=== PATIENT | male | born 1960 | race Caucasian/White ===

== ENCOUNTER 2019-05-12 10:09 | Emergency (ER) | payer BC ==
--- NOTE | 2019-05-12 10:41 | EDM.PDOC ---
<Donna Graff - Last Filed: 05/12/19 12:05> ED HPI GENERAL MEDICAL PROBLEM - General Chief Complaint: Back Pain or Injury Stated Complaint: BACK PAIN Time Seen by Provider: 05/12/19 10:29 Source of Information: Reports: Patient History Limitations: Reports: No Limitations - History of Present Illness INITIAL COMMENTS - FREE TEXT/NARRATIVE: 59-year-old male presents with complaints of her lateral lower back pain. Patient states the pain began Saturday after shoveling snow, but has been getting progressively worse since that time. He describes the pain as tightness radiating through the bilateral paraspinous muscles. Denies any pain directly over the spine. He has tried ice, Tylenol and aspirin at home with no relief. He states that the pain is worse with deep breathing and movement. Denies any bowel or bladder symptoms. Denies previous history of back pain or surgeries. Lower Back Pain Score (Numeric/FACES): 10 - Related Data Allergies Allergy/AdvReac Type Severity Reaction Status Date / Time No Known Allergies Allergy Verified 05/12/19 10:25 Home Meds: Home Meds Cyclobenzaprine [Flexeril] 10 mg PO BEDTIME PRN #5 tab 05/12/19 [Rx] Diclofenac Sodium [Voltaren] 50 mg PO TID #21 tab.ec 05/12/19 [Rx] predniSONE [Prednisone] 20 mg PO ASDIRECTED #11 tablet 05/12/19 [Rx] ED ROS GENERAL - Review of Systems Constitutional: Reports: No Symptoms. Denies: Weakness HEENT: Reports: No Symptoms Respiratory: Reports: No Symptoms Cardiovascular: Reports: No Symptoms Endocrine: Reports: No Symptoms GI/Abdominal: Reports: No Symptoms. Denies: Stool Incontinence : Reports: No Symptoms. Denies: Incontinence, Urinary Retention Musculoskeletal: Reports: Back Pain (bilateral lower) Skin: Reports: No Symptoms Neurological: Reports: No Symptoms. Denies: Numbness, Paresthesia, Tingling, Difficulty Walking, Weakness Psychiatric: Reports: No Symptoms Hematologic/Lymphatic: Reports: No Symptoms Immunologic: Reports: No Symptoms ED EXAM,LOWER BACK PAIN/INJURY - Physical Exam Exam: See Below Exam Limited By: No Limitations General Appearance: Alert, WD/WN, No Apparent Distress Respiratory/Chest: No Respiratory Distress, Lungs Clear, Normal Breath Sounds Cardiovascular: Normal Peripheral Pulses, Regular Rate, Rhythm, No Edema Back Exam: Normal Inspection, Muscle Spasm, Paraspinal Tenderness. No: Vertebral Tenderness Neurological: Alert, Normal Mood/Affect, Normal Dorsiflexion Psychiatric: Normal Affect, Normal Mood Skin Exam: Warm, Dry, Intact Course - Vital Signs Text/Narrative:: Patient is a 59-year-old male who presents with low back pain. He states the symptoms began shortly after shoveling snow on Saturday and has been getting progressively worse since that time. He has use ice, Tylenol and aspirin at home with no relief. He denies any bowel or bladder symptoms or numbness or tingling to lower extremities. He has no history of chronic back pain surgeries or injuries. On exam, the patient complains of tenderness to the bilateral paraspinous muscles, however, there is no tenderness directly over the spine itself. Pain is worsened with deep breathing or movement. We will treat the patient with Flexeril, prednisone and Toradol here in the ER. He will be sent home with a prescription for Voltaren 50 mg 3 times daily for 7 days, Flexeril 10 mg at bedtime, prednisone 20 mg twice a day for 4 days and then 20 mg daily for 4 days. Patient advised that he should see significant improvement within the next few days and if symptoms do not improve, he should follow up. Last Recorded V/S: Last Vital Signs Temp 36.8 C 05/12/19 10:25 Pulse 82 05/12/19 10:25 Resp 18 05/12/19 10:25 BP 147/81 H 05/12/19 10:25 Pulse Ox 99 05/12/19 10:25 - Orders/Labs/Meds Meds: Medications Discontinued Medications Generic Name Dose Route Start Last Admin Trade Name Mary PRN Reason Stop Dose Admin Cyclobenzaprine HCl 10 mg 05/12/19 10:50 05/12/19 11:51 Flexeril PO 05/12/19 10:51 10 mg ONETIME ONE Administration Ketorolac Tromethamine 60 mg 05/12/19 10:50 05/12/19 11:51 Toradol IM 05/12/19 10:51 60 mg ONETIME ONE Administration Prednisone 20 mg 05/12/19 10:49 05/12/19 11:50 Prednisone PO 05/12/19 10:50 20 mg ONETIME ONE Administration Departure - Departure Time of Disposition: 12:05 Disposition: Home, Self-Care 01 Condition: Fair Clinical Impression: Low back strain - Discharge Information *PRESCRIPTION DRUG MONITORING PROGRAM REVIEWED*: No *COPY OF PRESCRIPTION DRUG MONITORING REPORT IN PATIENT EDENILSON: No Prescriptions: Cyclobenzaprine [Flexeril] 10 mg PO BEDTIME PRN #5 tab PRN Reason: Muscle Spasm Diclofenac Sodium [Voltaren] 50 mg PO TID #21 tab.ec predniSONE [Prednisone] 20 mg PO ASDIRECTED #11 tablet Instructions: Acute Back Pain, Adult, Lumbosacral Strain Referrals: Shauna Marte, SENIOR COST ESTIMATOR [Primary Care Provider] - Forms: ED Department Discharge Additional Instructions: You were seen in the ER today with complaints of lower back pain that started after shoveling snow on Saturday. On exam, it appears ER suffering from spasms of the paraspinous muscles surrounding her spine. You were given a dose of Flexeril, Toradol, and prednisone in the ER to reduce the inflammation and relax these muscles. A prescription for Voltaren 50 mg by mouth 3 times daily for 7 days, Flexeril 10 mg by mouth at bedtime, and prednisone 20 mg by mouth twice daily for 4 days followed by 20 mg once daily for 4 days, was sent to [facility] pharmacy. We recommend that you take the Voltaren with food to prevent stomach upset. You may continue to use ice or heat to her lower back as needed. You should begin to see significant improvement in your symptoms over the next few days. If you do not see improvement as expected we recommend that you follow-up with your primary care provider or return to the ER if needed. <Naga Garcia - Last Filed: 05/12/19 12:20> ED ROS GENERAL - Review of Systems Review Of Systems: See Below Course - Radiology Interpretation Free Text/Narrative:: Patient was seen and examined by me as well as the nurse practitioner student Donna Graff. Patient has a mechanical low back strain time early involving the facet joints in his left lower back lumbar 3-5. Is no radiculopathy and SI joints are normal. Treatment will be conservative with IM injection of Toradol for acute pain relief. He will be placed on a short course of prednisone 20 mg twice a day for 4 days then once in the morning for another 4 days. Voltaren 50 mg 3 times daily for the next 7 days. Also placed on Flexeril 10 mg once daily at bedtime. I agree with patient's examination and treatment plan is provided by the nurse practitioner.
[2019-05-12] MEDS ORDERED: predniSONE 20 MG Tab PO ONE (10:49)
[2019-05-12] MEDS ORDERED: Cyclobenzaprine 10 MG Tab PO ONE (10:50)
[2019-05-12] MEDS ORDERED: Ketorolac 60 MG/2 ML SDV IM ONE (10:50)
== END 2019-05-12 12:16 | disposition home or self-care (01) ==
LOC: JD.ED 10:09
DX: S39.012A Strain of muscle, fascia and tendon of lower back, initial encounter (principal); Y93.H1 Activity, digging, shoveling and raking
CPT/HCPCS: 96372; 99283; A9270; J1885

== ENCOUNTER 2019-05-28 09:30 | Emergency (ER) | payer BC ==
--- NOTE | 2019-05-28 10:46 | EDM.PDOC ---
ED HPI GENERAL MEDICAL PROBLEM - General Chief Complaint: Back Pain or Injury Stated Complaint: BACK PAIN Time Seen by Provider: 05/28/19 09:49 Source of Information: Reports: Patient, Family (), Old Records (ED visit , MRI 05/25/2019) History Limitations: Reports: No Limitations - History of Present Illness INITIAL COMMENTS - FREE TEXT/NARRATIVE: Mr. Duggan is a very pleasant 59-year-old man with a past medical history significant for untreated CLL, untreated ulcerative colitis, and a seizure disorder for which she takes lamotrigine, who was seen in this ED on Saturday, , and 05/17/2019, both times for lower back pain that developed on either 05/10/2019 or 05/12/2019, after he shoveled snow, played with his grandchildren, and moved items. On his initial ED visit, he was prescribed a prednisone taper, along with diclofenac and cyclobenzaprine. The patient then followed up with his PCP on 05/13/2019 where his cyclobenzaprine was increased from once a day to 3 times a day. His pain got worse, therefore he returned to the ED on 05/17/2019, at which time he reported that his pain radiated "everywhere", including down both lower extremities as far as the knee. He reported paresthesia to his bilateral upper lateral thighs that began on 05/16/2019. He denied bowel or bladder incontinence, and he denied having recent fever. Workup during his second ED visit included a CBC, CMP, urinalysis, and a CT scan of the lumbar spine with IV contrast. His WBC count was elevated at 44.751% bandemia, but it was noted that the patient has a history of untreated CLL, and he was also on prednisone. The remainder of his CBC, along with his CMP and urinalysis, were unremarkable. The CT scan of his L-spine with contrast found a small central bulge at L5-S1, but with no stenosis or visible nerve compression. Also noted, however, were increased numbers of lymph nodes within the retroperitoneum, iliac, and presacral regions. Further evaluation was recommended. He was discharged home with a prescription for Greenfield 5/325, and his cyclobenzaprine was switched to Greenfield. The patient tells me that he did not actually see his PCP, but he called him, Maura of his L-spine was ordered, which was performed on 05/25/2019. The report reads: 1. Mild diffuse degenerative change as noted above. No central canal stenosis or neural foraminal stenosis is seen. No focal disc herniation is seen. The patient now returns to the ED stating that his pain has continued. It waxes and wanes, and when present, can be excruciating, despite his continuation of Percocet, Greenfield, and diclofenac. At present, here in the ED, his pain is minimal. No recent fever, chills, cough, dyspnea, nausea, vomiting, constipation, diarrhea, abdominal pain, urinary symptoms, recent weight gain or weight loss, recent bloody bowel movements or black bowel movements, recent joint aches, headaches, or rashes. The patient's PCP is Dr. Aron Sweet. His Neurologist is Dr. Gildardo Suresh. His Oncologist is Dr. Fabrizio Yu. Bilateral Lower Back Pain Score (Numeric/FACES): 8 - Related Data Allergies Allergy/AdvReac Type Severity Reaction Status Date / Time No Known Allergies Allergy Verified 05/28/19 09:51 Home Meds: Home Meds Orphenadrine [Norflex] 1 tab PO Q12H PRN #20 tab 05/17/19 [Rx] Diclofenac Sodium [Voltaren] 75 mg PO BID 05/28/19 [History] oxyCODONE HCl/Acetaminophen [Percocet 5-325 mg Tablet] 1 each PO ASDIRECTED PRN 05/28/19 [History] Past Medical History HEENT History: Reports: Impaired Vision Other HEENT History: glasses Respiratory History: Reports: Sleep Apnea (nightly AutoPAP) Gastrointestinal History: Reports: Diverticulosis (w/ diverticulitis, s/p sigmoid hemicolectomy), Inflammatory Bowel Disease (ulcerative colitis - untreated) Neurological History: Reports: Seizure Oncologic (Cancer) History: Reports: Leukemia (CLL - observation only) - Past Surgical History HEENT Surgical History: Reports: Oral Surgery (wisdom teeth extraction), Tonsillectomy GI Surgical History: Reports: Colon (sigmoid hemicolectomy 2003) Musculoskeletal Surgical History: Reports: Shoulder Surgery (left, arthroscopic , 2011) Social & Family History - Tobacco Use Smoking Status *Q: Never Smoker - Alcohol Use Alcohol Use History: Yes Alcohol Use Frequency: Socially - Recreational Drug Use Recreational Drug Use: No - Living Situation & Occupation Living situation: Reports: , with Spouse, with Family (1 son) Occupation: Employed ([employer]) ED ROS GENERAL - Review of Systems Review Of Systems: Comprehensive ROS is negative, except as noted in HPI. ED EXAM,LOWER BACK PAIN/INJURY - Physical Exam Exam: See Below Exam Limited By: No Limitations General Appearance: Alert, WD/WN, No Apparent Distress Eye Exam: Bilateral Eye: EOMI, Normal Inspection Ears: Normal External Exam, Hearing Grossly Normal Nose: Normal Inspection Throat/Mouth: Normal Inspection, Normal Lips, Normal Voice, No Airway Compromise Head: Atraumatic, Normocephalic Neck: Normal Inspection, Full Range of Motion Respiratory/Chest: No Respiratory Distress, Lungs Clear, Normal Breath Sounds, No Accessory Muscle Use Cardiovascular: Normal Peripheral Pulses, Regular Rate, Rhythm, No Edema, No Gallop, No JVD, No Murmur, No Rub GI/Abdominal: Normal Bowel Sounds, Soft, Non-Tender, No Organomegaly, No Distention, No Abnormal Bruit, No Mass (Male) Exam: Deferred Rectal (Males) Exam: Deferred Back Exam: Normal Inspection. No: CVA Tenderness (L), CVA Tenderness (R), Muscle Spasm, Paraspinal Tenderness, Vertebral Tenderness Extremities: Normal Inspection, Normal Range of Motion, No Pedal Edema, Normal Capillary Refill Neurological: Alert, Normal Dorsiflexion, Normal Plantar Flexion, No Motor/ Sensory Deficits, Oriented x 3 Psychiatric: Normal Affect Skin Exam: Warm, Dry, Intact, Normal Color, No Rash Course - Vital Signs Last Recorded V/S: Last Vital Signs Temp 37.4 C 05/28/19 09:56 Pulse 62 05/28/19 09:56 Resp 16 05/28/19 09:56 BP 97/47 L 05/28/19 09:56 Pulse Ox 95 05/28/19 09:56 - Re-Assessments/Exams Free Text/Narrative Re-Assessment/Exam: 05/28/19 10:41 As per the HPI, the patient's lower back pain has continued to wax and wane despite treatment with Greenfield, Norflex, and diclofenac. Here in the ED, the patient is essentially pain-free, and his physical exam is benign, however, he states that about an hour ago, he was in excruciating pain. The etiology of his pain is unclear; both a CT scan of his lumbar spine with IV contrast and a MRI of his lumbar spine are unremarkable. There does not appear to be an anatomic abnormality to explain his pain, however, that does not rule out a functional abnormality. I offered to place the patient into observation for pain control, versus talk to his Neurologist in [place] to see if they would recommend admission to the hospital for further evaluation, however, the patient declined both options - he does not want to be hospitalized on . Because he is pain-free at this time, he would prefer to go home, however, if his pain returns and is unable to be controlled with the Percocet, Norflex, and diclofenac that he has at home, the patient agreed to return to the ED for reevaluation and reconsideration of hospitalization. Departure - Departure Time of Disposition: 10:44 Disposition: Home, Self-Care 01 Condition: Good Clinical Impression: Low back pain - Discharge Information *PRESCRIPTION DRUG MONITORING PROGRAM REVIEWED*: Not Applicable *COPY OF PRESCRIPTION DRUG MONITORING REPORT IN PATIENT EDENILSON: Not Applicable Referrals: Aron Sweet MD [Primary Care Provider] - Gildardo Suresh MD [Ordering Only Provider] - Fabrizio Yu MD [Ordering Only Provider] - Forms: ED Department Discharge Additional Instructions: You were seen in the emergency room for continued exacerbations of lower back pain. As discussed, the diagnostic ability of the emergency department has been exhausted. Placement into observation for pain control versus potential transferred to [place] were offered, but declined. Continue to take your previously prescribed Percocet, diclofenac, and Norflex, as prescribed. If your pain recurs and is unbearable, please do not hesitate to return to the ER for reevaluation with likely placement into observation versus transfer to [place].
== END 2019-05-28 10:57 | disposition home or self-care (01) ==
LOC: JD.ED 09:30
DX: M54.5 Low back pain (principal); G40.909 Epilepsy, unspecified, not intractable, without status epilepticus; G47.30 Sleep apnea, unspecified; Z79.899 Other long term (current) drug therapy
CPT/HCPCS: 99282

== ENCOUNTER 2021-05-22 17:52 | Emergency (ER) | payer BC ==
[2021-05-22] MEDS ORDERED: Sodium Chloride 0.9% 10 ML Syringe FLUSH PRN (18:27)
--- NOTE | 2021-05-22 18:58 | EDM.PDOC ---
<Aurelio Salazar - Last Filed: 05/22/21 21:10> ED HPI GENERAL MEDICAL PROBLEM - General Chief Complaint: Cardiovascular Problem Stated Complaint: LOW HEMOGLOBIN Time Seen by Provider: 05/22/21 18:07 - Related Data Allergies Allergy/AdvReac Type Severity Reaction Status Date / Time No Known Allergies Allergy Verified 05/23/21 14:58 Home Meds: Home Meds Orphenadrine [Norflex] 1 tab PO Q12H PRN #20 tab 05/17/19 [Rx] Diclofenac Sodium [Voltaren] 75 mg PO BID 05/28/19 [History] oxyCODONE HCl/Acetaminophen [Percocet 5-325 mg Tablet] 1 each PO ASDIRECTED PRN 05/28/19 [History] predniSONE 20 mg PO WITHBREAKFAST #50 tab 05/24/21 [Rx] Course - Re-Assessments/Exams Free Text/Narrative Re-Assessment/Exam: 05/22/21 21:10 Assumed care routine change of shift. Patient evaluated at bedside. When I walked in, he was eating a [employer] sandwich. Laboratory studies demonstrate hemoglobin of 4.2. Bilirubin of 7. Gallbladder ultrasound demonstrates mild thickening but no signs of acute cholecystitis. No gallstones seen. At this point, blood transfusion has been ordered but not been initiated. We will initiate this shortly. Conversation with patient about admission occurred. He does prefer to go to [facility] as is where his oncology care is. Departure - Departure Disposition: Home, Self-Care 01 Clinical Impression: Anemia, CLL (chronic lymphocytic leukemia) Referrals: Aron Sweet MD [Primary Care Provider] - Forms: ED Department Discharge Additional Instructions: Labs reviewed with Dr Yu office and recommendations from his office are that you will be discharged home. Continue Prednisone 100 mg orally every day until further directions given to you by Dr Tinsley office. You are to go to [facility] on 05-25-21 for repeat lab work. They are open 8am to 2 pm on . Lab work also to be repeated on Saturday05-26-[address] [facility]open normal business hours) Further direction and care to come from Dr Tinsley office. Should you worsen in any way, please do not hesitate to return to the Emergency Department Dr. Yu's will inform you on how long to take the prednisone for. I did send an electronic prescription to the clinic pharmacy so you have 10 days of prednisone if you need it that long. Take 5 tablets every morning until advised to do otherwise. Do not take Voltaren ibuprofen or Naprosyn like medications with the prednisone. <Dennis García A - Last Filed: 05/23/21 18:23> ED HPI GENERAL MEDICAL PROBLEM - General Source of Information: Reports: Patient History Limitations: Reports: No Limitations - History of Present Illness INITIAL COMMENTS - FREE TEXT/NARRATIVE: The patient presents from Dr Sweet's office for anemia and jaundice. The patient was diagnosed with COVID 19 on the . He did okay until recently. He has swelling in his hands and legs. He is short of breath with walking just a few feet. He had a fever at the clinic of 102. He has a cough. He has no headache. He has no chest pain. He is short of breath. He has no abdominal pain. He has no nausea or vomiting. He has a history of CLL. His WBC was 37.6. His Hgb was low at 4.3. He has been jaundiced for a few days. He has never had any problems with his liver or gallbladder. He has not been taking acetaminophen in excess and he is not a heavy drinker. Headache Pain Score (Numeric/FACES): 7 Past Medical History HEENT History: Reports: Impaired Vision Other HEENT History: glasses Respiratory History: Reports: Sleep Apnea Other Respiratory History: COVID Gastrointestinal History: Reports: Diverticulosis, Inflammatory Bowel Disease Other Gastrointestinal History: emergent bowel resection in 2003 due to diverticulitis, ulcerative colitis Genitourinary History: Reports: Other (See Below) Other Genitourinary History: frequent bathroom trips. Musculoskeletal History: Reports: Fracture Neurological History: Reports: Concussion, Seizure Psychiatric History: Reports: Anxiety, Depression Hematologic History: Reports: Blood Transfusion(s), Other (See Below) Other Hematologic History: CLL Oncologic (Cancer) History: Reports: Basal Cell Carcinoma, Leukemia Dermatologic History: Reports: Other (See Below) Other Dermatologic History: plastic duplicator, basal cell CA - Infectious Disease History Infectious Disease History: Reports: Chicken Pox, Mumps, Novel Coronavirus - Past Surgical History HEENT Surgical History: Reports: Oral Surgery, Tonsillectomy GI Surgical History: Reports: Colon, Colonoscopy Musculoskeletal Surgical History: Reports: Shoulder Surgery Social & Family History - Tobacco Use Tobacco Use Status *Q: Never Tobacco User Second Hand Smoke Exposure: No - Caffeine Use Caffeine Use: Reports: Coffee - Recreational Drug Use Recreational Drug Use: No - Living Situation & Occupation Living situation: Reports: , with Spouse, with Family (1 son) Occupation: Employed ([employer]) ED ROS GENERAL - Review of Systems Review Of Systems: See Below Constitutional: Reports: Fever, Chills, Weakness, Fatigue HEENT: Reports: No Symptoms Respiratory: Reports: Shortness of Breath Cardiovascular: Reports: Edema. Denies: Chest Pain Endocrine: Reports: No Symptoms GI/Abdominal: Reports: No Symptoms : Reports: No Symptoms Musculoskeletal: Reports: Other (Swelling of his hands and feet) Skin: Reports: Jaundice Neurological: Reports: No Symptoms ED EXAM, GENERAL - Physical Exam Exam: See Below Exam Limited By: No Limitations General Appearance: Alert, No Apparent Distress Eye Exam: Bilateral Eye: Other (Scleral ictirus) Ears: Normal External Exam Nose: Normal Inspection Head: Atraumatic, Normocephalic Neck: Normal Inspection, Supple Respiratory/Chest: No Respiratory Distress, Lungs Clear, Normal Breath Sounds Cardiovascular: Regular Rate, Rhythm, Other (2+ edema to his legs and 1+ to his arms) GI/Abdominal: Soft, Non-Tender, No Organomegaly Back Exam: Normal Inspection Neurological: Alert, Oriented, No Motor/Sensory Deficits #1 Interpretation EKG Date: 05/22/21 Time: 19:11 Rhythm: NSR Rate (Beats/Min): 77 [place]: Normal P-Wave: Present QRS: Normal ST-T: Normal QT: Normal Course - Re-Assessments/Exams Free Text/Narrative Re-Assessment/Exam: 05/22/21 19:03 I ordered an IV saline lock, EKG, CXR, labs, 3 units of blood and an US of his RUQ. 05/22/21 19:32 His EKG shows a NSR with no acute changes. His CXR shows bone findings which are likely incidental and chronic. Nothing acute is seen on frontal chest x- ray. His WBC was elevated at 32.44. His Hgb is 4.2. His platelets are normal at 321. His PT and PTT look good. His D-dimer was elevated at 1.3. It is change of shift. Dr Salazar to take over. Free Text/Narrative Re-Assessment/Exam: 05/23/21 10:[address] Salazar. There were no beds at [facility] last night. He is on a waiting list for this morning. He is getting a 4th unit of blood. I will recheck his Hgb then. 05/23/21 18:23 His Hgb did not move much he is at 6.5. I have ordered another unit of blood. There is still ne beds. I called around the [facility]. He is on a list at [facility] and at the [facility] transfer center. I did talk with his Heme/onc doctor Dr Yu and he recommended prednisone 100mg daily. He feels his blood is being hemolyzed. I ordered that and I will give him a dose of lasix after the next infusion and recheck his CBC and CMP. 05/23/21 18:28 It is change of shift soon. Dr Salazar to take over. Sepsis Event Note (ED) - Evaluation Sepsis Screening Result: No Definite Risk <Quique Carvalho - Last Filed: 05/24/21 11:27> Course - Vital Signs Last Recorded V/S: Last Vital Signs Temp 37.1 C 05/23/21 15:57 Pulse 76 05/24/21 10:15 Resp 24 H 05/24/21 10:15 BP 127/57 L 05/24/21 10:15 Pulse Ox 95 05/24/21 10:15 - Orders/Labs/Meds Orders: Active Orders 24 hr Category Date Time Status HAPTOGLOBIN [REF] Stat Lab 05/23/21 12:15 Received SMEARS TO PATH (SLIDES ONLY) [REF] Stat Lab 05/23/21 12:15 Received predniSONE Med 05/24/21 09:00 Active 100 mg PO DAILY Transfuse PRBC [Transfuse Red Blood Cells] [COMM] Stat Oth 05/23/21 14:11 Ordered Medication Orders Sodium Chloride (Normal Saline) 1,000 mls @ 25 mls/hr IV ONETIME ONE Stop: 05/24/21 13:06 Last Admin: 05/22/21 21:57 Dose: 25 mls/hr Documented by: VENICE Sodium Chloride (Normal Saline) 250 mls @ 100 mls/hr IV ASDIRECTED [facility] Last Admin: 05/23/21 15:45 Dose: 100 mls/hr Documented by: KEMI Prednisone (Prednisone 20 Mg Tab) 100 mg PO DAILY [facility] Last Admin: 05/24/21 08:56 Dose: 100 mg Documented by: WARREN Sodium Chloride (Sodium Chloride 0.9% 10 Ml Syringe) 10 ml FLUSH ASDIRECTED PRN PRN Reason: Keep Vein Open Last Admin: 05/22/21 18:54 Dose: 10 ml Documented by: FRANCISCO Labs: Laboratory Tests 05/22/21 05/22/21 05/22/21 Range/Units 00:14 18:50 18:50 WBC (4.23-9.07) K/mm3 RBC (4.63-6.08) M/mm3 Hgb (13.7-17.5) gm/dl Hct (40.1-51.0) % MCV (79.0-92.2) fl MCH (25.7-32.2) pg MCHC (32.2-35.5) g/dl RDW Std Deviation (35.1-43.9) fL Plt Count (163-337) K/mm3 MPV (9.4-12.3) fl Neut % (Auto) Lymph % (Auto) Harney % (Auto) Eos % (Auto) Baso % (Auto) Neut # (Auto) Lymph # (Auto) Harney # (Auto) Eos # (Auto) Baso # (Auto) Neutrophils % (Manual) (40-60) % Band Neutrophils % (0-10) % Lymphocytes % (Manual) (20-40) % Atypical Lymphs % % Monocytes % (Manual) (2-10) % Eosinophils % (Manual) (0.8-7.0) % Basophils % (Manual) (0.2-1.2) Blast Cells % Manual Slide Review Toxic Granulation Platelet Estimate Plt Morphology Comment Polychromasia Hypochromasia Poikilocytosis Anisocytosis Macrocytosis Spherocytes Target Cells Tear Drop Cells Ovalocytes Stomatocytes RBC Morph Comment Percent Retic (0.51-1.81) % PT 10.3 (9.7-12.0) SECONDS INR 0.93 APTT 22.8 (21.7-31.4) SECONDS D-Dimer, Quantitative 1.30 H (0.19-0.50) mg/L Sodium 135 L (136-145) mEq/L Potassium 4.3 (3.5-5.1) mEq/L Chloride 101 (98-107) mEq/L Carbon Dioxide 26 (21-32) mEq/L Anion Gap 12.3 (5-15) BUN 22 H (7-18) mg/dL Creatinine 1.2 (0.7-1.3) mg/dL Est Cr Clr Drug Dosing 67.98 mL/min Estimated GFR (MDRD) > 60 (>60) mL/min BUN/Creatinine Ratio 18.3 H (14-18) Glucose 116 H (70-99) mg/dL Lactic Acid (0.4-2.0) mmol/L Calcium 8.8 (8.5-10.1) mg/dL Total Bilirubin 7.0 H (0.2-1.0) mg/dL Direct Bilirubin (0.0-0.2) mg/dl Indirect Bilirubin AST 97 H (15-37) U/L ALT 41 (16-63) U/L Alkaline Phosphatase 142 H (46-116) U/L Lactate Dehydrogenase (85-227) U/L Troponin I < 0.017 (0.00-0.056) ng/mL C-Reactive Protein 3.4 H* (<1.0) mg/dL NT-Pro-B Natriuret Pep (0-125) pg/mL Total Protein 6.2 L (6.4-8.2) g/dl Albumin 3.5 (3.4-5.0) g/dl Globulin 2.7 gm/dL Albumin/Globulin Ratio 1.3 (1-2) Lipase 132 (73-393) U/L SARS-CoV-2 RNA (NINO) Positive H (NEGATIVE) Blood Type Gel Antibody Screen Crossmatch 05/22/21 05/22/21 05/22/21 Range/Units 18:50 18:50 18:50 WBC (4.23-9.07) K/mm3 RBC (4.63-6.08) M/mm3 Hgb (13.7-17.5) gm/dl Hct (40.1-51.0) % MCV (79.0-92.2) fl MCH (25.7-32.2) pg MCHC (32.2-35.5) g/dl RDW Std Deviation (35.1-43.9) fL Plt Count (163-337) K/mm3 MPV (9.4-12.3) fl Neut % (Auto) Lymph % (Auto) [place] % (Auto) Eos % (Auto) Baso % (Auto) Neut # (Auto) Lymph # (Auto) [place]ney # (Auto) Eos # (Auto) Baso # (Auto) Neutrophils % (Manual) (40-60) % Band Neutrophils % (0-10) % Lymphocytes % (Manual) (20-40) % Atypical Lymphs % % Monocytes % (Manual) (2-10) % Eosinophils % (Manual) (0.8-7.0) % Basophils % (Manual) (0.2-1.2) Blast Cells % Manual Slide Review Toxic Granulation Platelet Estimate Plt Morphology Comment Polychromasia Hypochromasia Poikilocytosis Anisocytosis Macrocytosis Spherocytes Target Cells Tear Drop Cells Ovalocytes Stomatocytes RBC Morph Comment Percent Retic (0.51-1.81) % PT (9.7-12.0) SECONDS INR APTT (21.7-31.4) SECONDS D-Dimer, Quantitative (0.19-0.50) mg/L Sodium (136-145) mEq/L Potassium (3.5-5.1) mEq/L Chloride (98-107) mEq/L Carbon Dioxide (21-32) mEq/L Anion Gap (5-15) BUN (7-18) mg/dL Creatinine (0.7-1.3) mg/dL Est Cr Clr Drug Dosing mL/min Estimated GFR (MDRD) (>60) mL/min BUN/Creatinine Ratio (14-18) Glucose (70-99) mg/dL Lactic Acid 0.8 (0.4-2.0) mmol/L Calcium (8.5-10.1) mg/dL Total Bilirubin (0.2-1.0) mg/dL Direct Bilirubin (0.0-0.2) mg/dl Indirect Bilirubin AST (15-37) U/L ALT (16-63) U/L Alkaline Phosphatase (46-116) U/L Lactate Dehydrogenase (85-227) U/L Troponin I (0.00-0.056) ng/mL C-Reactive Protein (<1.0) mg/dL NT-Pro-B Natriuret Pep 783 H (0-125) pg/mL Total Protein (6.4-8.2) g/dl Albumin (3.4-5.0) g/dl Globulin gm/dL Albumin/Globulin Ratio (1-2) Lipase (73-393) U/L SARS-CoV-2 RNA (NINO) (NEGATIVE) Blood Type A POSITIVE Gel Antibody Screen Negative Crossmatch See Detail 05/22/21 05/22/21 05/22/21 Range/Units 18:50 18:54 20:10 WBC 32.44 H (4.23-9.07) K/mm3 RBC 1.20 L (4.63-6.08) M/mm3 Hgb 4.2 L* D (13.7-17.5) gm/dl Hct 12.9 L (40.1-51.0) % MCV 107.5 H D (79.0-92.2) fl MCH 35.0 H (25.7-32.2) pg MCHC 32.6 (32.2-35.5) g/dl RDW Std Deviation 56.3 H (35.1-43.9) fL Plt Count 321 (163-337) K/mm3 MPV 9.2 L (9.4-12.3) fl Neut % (Auto) Lymph % (Auto) [place] % (Auto) Eos % (Auto) Baso % (Auto) Neut # (Auto) Lymph # (Auto) [place] # (Auto) Eos # (Auto) Baso # (Auto) Neutrophils % (Manual) 27 L (40-60) % Band Neutrophils % 1 (0-10) % Lymphocytes % (Manual) 44 H (20-40) % Atypical Lymphs % 6 % Monocytes % (Manual) 20 H (2-10) % Eosinophils % (Manual) 0 L (0.8-7.0) % Basophils % (Manual) 0 L (0.2-1.2) Blast Cells % 2 Manual Slide Review Toxic Granulation Moderate Platelet Estimate Adequate Plt Morphology Comment Polychromasia 1+ slight Hypochromasia Poikilocytosis 1+ slight Anisocytosis 2+ moderate Macrocytosis 2+ moderate Spherocytes Few Target Cells Tear Drop Cells Ovalocytes 1+ slight Stomatocytes RBC Morph Comment Not Reportable Percent Retic (0.51-1.81) % PT (9.7-12.0) SECONDS INR APTT (21.7-31.4) SECONDS D-Dimer, Quantitative (0.19-0.50) mg/L Sodium (136-145) mEq/L Potassium (3.5-5.1) mEq/L Chloride (98-107) mEq/L Carbon Dioxide (21-32) mEq/L Anion Gap (5-15) BUN (7-18) mg/dL Creatinine (0.7-1.3) mg/dL Est Cr Clr Drug Dosing mL/min Estimated GFR (MDRD) (>60) mL/min BUN/Creatinine Ratio (14-18) Glucose (70-99) mg/dL Lactic Acid (0.4-2.0) mmol/L Calcium (8.5-10.1) mg/dL Total Bilirubin 6.4 H (0.2-1.0) mg/dL Direct Bilirubin 0.80 H (0.0-0.2) mg/dl Indirect Bilirubin 5.60 AST (15-37) U/L ALT (16-63) U/L Alkaline Phosphatase (46-116) U/L Lactate Dehydrogenase (85-227) U/L Troponin I (0.00-0.056) ng/mL C-Reactive Protein (<1.0) mg/dL NT-Pro-B Natriuret Pep (0-125) pg/mL Total Protein (6.4-8.2) g/dl Albumin (3.4-5.0) g/dl Globulin gm/dL Albumin/Globulin Ratio (1-2) Lipase (73-393) U/L SARS-CoV-2 RNA (NINO) (NEGATIVE) Blood Type Gel Antibody Screen Crossmatch See Detail 05/22/21 05/22/21 05/23/21 Range/Units 21:04 22:54 04:25 WBC (4.23-9.07) K/mm3 RBC (4.63-6.08) M/mm3 Hgb 6.6 L* D (13.7-17.5) gm/dl Hct 19.6 L (40.1-51.0) % MCV (79.0-92.2) fl MCH (25.7-32.2) pg MCHC (32.2-35.5) g/dl RDW Std Deviation (35.1-43.9) fL Plt Count (163-337) K/mm3 MPV (9.4-12.3) fl Neut % (Auto) Lymph % (Auto) [place] % (Auto) Eos % (Auto) Baso % (Auto) Neut # (Auto) Lymph # (Auto) [place] # (Auto) Eos # (Auto) Baso # (Auto) Neutrophils % (Manual) (40-60) % Band Neutrophils % (0-10) % Lymphocytes % (Manual) (20-40) % Atypical Lymphs % % Monocytes % (Manual) (2-10) % Eosinophils % (Manual) (0.8-7.0) % Basophils % (Manual) (0.2-1.2) Blast Cells % Manual Slide Review Toxic Granulation Platelet Estimate Plt Morphology Comment Polychromasia Hypochromasia Poikilocytosis Anisocytosis Macrocytosis Spherocytes Target Cells Tear Drop Cells Ovalocytes Stomatocytes RBC Morph Comment Percent Retic 5.87 H (0.51-1.81) % PT (9.7-12.0) SECONDS INR APTT (21.7-31.4) SECONDS D-Dimer, Quantitative (0.19-0.50) mg/L Sodium (136-145) mEq/L Potassium (3.5-5.1) mEq/L Chloride (98-107) mEq/L Carbon Dioxide (21-32) mEq/L Anion Gap (5-15) BUN (7-18) mg/dL Creatinine (0.7-1.3) mg/dL Est Cr Clr Drug Dosing mL/min Estimated GFR (MDRD) (>60) mL/min BUN/Creatinine Ratio (14-18) Glucose (70-99) mg/dL Lactic Acid (0.4-2.0) mmol/L Calcium (8.5-10.1) mg/dL Total Bilirubin (0.2-1.0) mg/dL Direct Bilirubin (0.0-0.2) mg/dl Indirect Bilirubin AST (15-37) U/L ALT (16-63) U/L Alkaline Phosphatase (46-116) U/L Lactate Dehydrogenase 1486 H (85-227) U/L Troponin I (0.00-0.056) ng/mL C-Reactive Protein (<1.0) mg/dL NT-Pro-B Natriuret Pep (0-125) pg/mL Total Protein (6.4-8.2) g/dl Albumin (3.4-5.0) g/dl Globulin gm/dL Albumin/Globulin Ratio (1-2) Lipase (73-393) U/L SARS-CoV-2 RNA (NINO) (NEGATIVE) Blood Type Gel Antibody Screen Crossmatch 05/23/21 05/23/21 05/23/21 Range/Units 12:15 21:12 21:12 WBC 37.07 H 44.30 H (4.23-9.07) K/mm3 RBC 1.92 L 2.33 L (4.63-6.08) M/mm3 Hgb 6.5 L* 7.7 L (13.7-17.5) gm/dl Hct 18.9 L 22.4 L (40.1-51.0) % MCV 98.4 H D 96.1 H (79.0-92.2) fl MCH 33.9 H 33.0 H (25.7-32.2) pg MCHC 34.4 34.4 (32.2-35.5) g/dl RDW Std Deviation 54.0 H 55.0 H (35.1-43.9) fL Plt Count 272 279 (163-337) K/mm3 MPV 9.1 L 8.9 L (9.4-12.3) fl Neut % (Auto) Cancelled Lymph % (Auto) Cancelled [place] % (Auto) Cancelled Eos % (Auto) Cancelled Baso % (Auto) Cancelled Neut # (Auto) Cancelled Lymph # (Auto) Cancelled [place] # (Auto) Cancelled Eos # (Auto) Cancelled Baso # (Auto) Cancelled Neutrophils % (Manual) 23 L 32 L (40-60) % Band Neutrophils % 0 0 (0-10) % Lymphocytes % (Manual) 73 H 56 H (20-40) % Atypical Lymphs % 0 6 % Monocytes % (Manual) 3 6 (2-10) % Eosinophils % (Manual) 0 L 0 L (0.8-7.0) % Basophils % (Manual) 1 0 L (0.2-1.2) Blast Cells % Manual Slide Review Cancelled Toxic Granulation Few Platelet Estimate Adequate Adequate Plt Morphology Comment Normal Polychromasia Hypochromasia 4+ Poikilocytosis Anisocytosis 1+ slight Macrocytosis 1+ slight Spherocytes Target Cells 2+ moderate Tear Drop Cells 4+ Ovalocytes Stomatocytes 2+ moderate RBC Morph Comment Abnormal Not Reportable Percent Retic (0.51-1.81) % PT (9.7-12.0) SECONDS INR APTT (21.7-31.4) SECONDS D-Dimer, Quantitative (0.19-0.50) mg/L Sodium 134 L (136-145) mEq/L Potassium 4.6 (3.5-5.1) mEq/L Chloride 101 (98-107) mEq/L Carbon Dioxide 25 (21-32) mEq/L Anion Gap 12.6 (5-15) BUN 25 H (7-18) mg/dL Creatinine 1.0 (0.7-1.3) mg/dL Est Cr Clr Drug Dosing 81.58 mL/min Estimated GFR (MDRD) > 60 (>60) mL/min BUN/Creatinine Ratio 25.0 H (14-18) Glucose 147 H (70-99) mg/dL Lactic Acid (0.4-2.0) mmol/L Calcium 8.4 L (8.5-10.1) mg/dL Total Bilirubin 10.8 H (0.2-1.0) mg/dL Direct Bilirubin (0.0-0.2) mg/dl Indirect Bilirubin AST 82 H (15-37) U/L ALT 39 (16-63) U/L Alkaline Phosphatase 136 H (46-116) U/L Lactate Dehydrogenase (85-227) U/L Troponin I (0.00-0.056) ng/mL C-Reactive Protein (<1.0) mg/dL NT-Pro-B Natriuret Pep (0-125) pg/mL Total Protein 5.8 L (6.4-8.2) g/dl Albumin 3.6 (3.4-5.0) g/dl Globulin 2.2 gm/dL Albumin/Globulin Ratio 1.6 (1-2) Lipase (73-393) U/L SARS-CoV-2 RNA (NINO) (NEGATIVE) Blood Type Gel Antibody Screen Crossmatch 05/24/21 Range/Units 06:20 WBC 37.83 H (4.23-9.07) K/mm3 RBC 2.21 L (4.63-6.08) M/mm3 Hgb 7.2 L* (13.7-17.5) gm/dl Hct 21.3 L (40.1-51.0) % MCV 96.4 H (79.0-92.2) fl MCH 32.6 H (25.7-32.2) pg MCHC 33.8 (32.2-35.5) g/dl RDW Std Deviation 56.1 H (35.1-43.9) fL Plt Count 271 (163-337) K/mm3 MPV 9.0 L (9.4-12.3) fl Neut % (Auto) Lymph % (Auto) [place] % (Auto) Eos % (Auto) Baso % (Auto) Neut # (Auto) Lymph # (Auto) [place] # (Auto) Eos # (Auto) Baso # (Auto) Neutrophils % (Manual) (40-60) % Band Neutrophils % (0-10) % Lymphocytes % (Manual) (20-40) % Atypical Lymphs % % Monocytes % (Manual) (2-10) % Eosinophils % (Manual) (0.8-7.0) % Basophils % (Manual) (0.2-1.2) Blast Cells % Manual Slide Review Toxic Granulation Platelet Estimate Plt Morphology Comment Polychromasia Hypochromasia Poikilocytosis Anisocytosis Macrocytosis Spherocytes Target Cells Tear Drop Cells Ovalocytes Stomatocytes RBC Morph Comment Percent Retic (0.51-1.81) % PT (9.7-12.0) SECONDS INR APTT (21.7-31.4) SECONDS D-Dimer, Quantitative (0.19-0.50) mg/L Sodium (136-145) mEq/L Potassium (3.5-5.1) mEq/L Chloride (98-107) mEq/L Carbon Dioxide (21-32) mEq/L Anion Gap (5-15) BUN (7-18) mg/dL Creatinine (0.7-1.3) mg/dL Est Cr Clr Drug Dosing mL/min Estimated GFR (MDRD) (>60) mL/min BUN/Creatinine Ratio (14-18) Glucose (70-99) mg/dL Lactic Acid (0.4-2.0) mmol/L Calcium (8.5-10.1) mg/dL Total Bilirubin (0.2-1.0) mg/dL Direct Bilirubin (0.0-0.2) mg/dl Indirect Bilirubin AST (15-37) U/L ALT (16-63) U/L Alkaline Phosphatase (46-116) U/L Lactate Dehydrogenase (85-227) U/L Troponin I (0.00-0.056) ng/mL C-Reactive Protein (<1.0) mg/dL NT-Pro-B Natriuret Pep (0-125) pg/mL Total Protein (6.4-8.2) g/dl Albumin (3.4-5.0) g/dl Globulin gm/dL Albumin/Globulin Ratio (1-2) Lipase (73-393) U/L SARS-CoV-2 RNA (NINO) (NEGATIVE) Blood Type Gel Antibody Screen Crossmatch Meds: Medications Generic Name Dose Route Start Last Admin Trade Name Mary PRN Reason Stop Dose Admin Sodium Chloride 1,000 mls @ 25 mls/hr 05/22/21 21:07 05/22/21 21:57 Normal Saline IV 05/24/21 13:06 25 mls/hr ONETIME ONE Administration Sodium Chloride 250 mls @ 100 mls/hr 05/23/21 07:00 05/23/21 15:45 Normal Saline IV 100 mls/hr ASDIRECTED FAINA Administration Prednisone 100 mg 05/24/21 09:00 05/24/21 08:56 Prednisone 20 Mg Tab PO 100 mg DAILY FAINA Administration Sodium Chloride 10 ml 05/22/21 18:27 05/22/21 18:54 Sodium Chloride 0.9% 10 Ml Syringe FLUSH 10 ml ASDIRECTED PRN Administration Keep Vein Open Discontinued Medications Generic Name Dose Route Start Last Admin Trade Name Mary PRN Reason Stop Dose Admin Acetaminophen 650 mg 05/23/21 13:47 05/23/21 13:52 Acetaminophen 325 Mg Tab PO 05/23/21 13:48 650 mg NOW ONE Administration Furosemide 40 mg 05/23/21 04:49 05/23/21 06:03 Furosemide 40 Mg/4 Ml Vial IVPUSH 05/23/21 04:50 40 mg NOW ONE Administration Furosemide 20 mg 05/23/21 18:26 05/23/21 19:00 Furosemide 20 Mg/2 Ml Vial IVPUSH 05/23/21 18:27 20 mg ONETIME ONE Administration Prednisone 100 mg 05/23/21 14:11 05/23/21 14:33 Prednisone 20 Mg Tab PO 05/23/21 14:12 100 mg ONETIME ONE Administration - Re-Assessments/Exams Free Text/Narrative Re-Assessment/Exam: 05/24/21 11:11 Assumed care at change of shift. Patient is getting a transfusion this morning as is hemoglobin was 7.1. Nursing is discussed the situation with his heme-onc doctor Dr. Yu's office they put together a discharge plan where he stays on the prednisone 100 mg daily. Departure - Departure Time of Disposition: 11:25 Sepsis Event Note (ED) - Focused Exam Vital Signs: Vital Signs Pulse Resp BP Pulse Ox 05/24/21 10:15 76 24 H 127/57 L 95 05/24/21 04:00 68 16 122/78 97 05/24/21 00:00 65 16 90 L
--- NOTE | 2021-05-22 19:14 | CR ---
Chest: Frontal view of the chest was obtained. Comparison: No prior chest imaging is available. Heart size is at the upper limits of normal. Upper mediastinum is within normal limits. Lungs are clear with no acute parenchymal change. Slight deformity of the left acromioclavicular joint is seen possibly due to previous surgery. Mild disc space narrowing is scattered within the spine as well as minimal osteophytes. Impression: 1. Bone findings which are likely incidental and chronic. 2. Nothing acute is seen on frontal chest x-ray. Diagnostic code #2
--- NOTE | 2021-05-22 20:00 | US ---
Limited abdominal ultrasound: Multiple real-time images were obtained of the upper right abdomen. Comparison: Prior abdominal and pelvic CT study of 11/12/19. Liver shows no focal abnormality. Gallbladder wall shows some thickening although gallbladder is not optimally distended. No shadowing gallstones are seen. No biliary duct dilatation is seen. Right kidney shows no hydronephrosis or discrete mass. Right kidney measures 11.5 cm in length. Proximal aorta shows no aneurysm. Visualized pancreas shows no discrete abnormality. Inferior vena cava is patent. Main portal vein shows normal hepatopedal flow. Impression: 1. Gallbladder wall appears to be somewhat thickened although gallbladder is not optimally distended. No shadowing gallstones are seen. No biliary duct dilatation is seen. 2. Other portions of the right upper quadrant abdominal ultrasound appear within normal limits. Diagnostic code #3
[2021-05-22] MEDS ORDERED: Sodium Chloride 0.9% 1,000 ML IV ONE (21:07)
[2021-05-23] MEDS ORDERED: Furosemide 40 MG/4 ML VIAL IVPUSH ONE (04:49)
--- NOTE | 2021-05-23 06:08 | CR ---
Chest: Portable view of the chest was obtained. Comparison: Prior chest x-ray of 05/22/21. Heart size and mediastinum are normal. Prior right shoulder surgery is noted. Slight deformity of the left clavicle is noted presumably due to old injury or surgery. Lungs are clear with no acute parenchymal change. Impression: 1. Nothing acute is seen on portable chest x-ray. Diagnostic code #2
[2021-05-23] MEDS ORDERED: Sodium Chloride 0.9% 250 ML IV SCH (07:00)
[2021-05-23] MEDS ORDERED: Acetaminophen 325 MG Tab PO ONE (13:47)
[2021-05-23] MEDS ORDERED: predniSONE 20 MG Tab PO ONE (14:11)
[2021-05-23] MEDS ORDERED: Furosemide 20 MG/2 ML VIAL IVPUSH ONE (18:26)
[2021-05-24] MEDS ORDERED: predniSONE 20 MG Tab PO SCH (09:00)
== END 2021-05-24 11:50 | disposition home or self-care (01) ==
LOC: JD.ED 17:52
DX: C91.10 Chronic lymphocytic leukemia of B-cell type not having achieved remission (principal); U07.1 COVID-19
CPT/HCPCS: 36415; 36430; 71045; 71045-26; 76705; 76705-26; 80053; 82247; 82248; 83010; 83605; 83615; 83690; 83880; 84484; 85007; 85014; 85018; 85027; 85045; 85379; 85610; 85730; 86140; 86850; 86900; 86901; 86922; 93005; 96374; 96376; 99284-25; A9270-GY; J1940; J7030; J7050; J7512; P9016; U0002

== ENCOUNTER 2021-06-02 14:53 | Inpatient (IN) | payer BC ==
[2021-06-02] MEDS ORDERED: Sodium Chloride 0.9% 10 ML Syringe FLUSH PRN (15:49)
--- NOTE | 2021-06-02 16:20 | CR ---
Chest: Frontal view of the chest was obtained. Comparison: Prior chest x-ray of 05/22/21 Heart size and mediastinum are within normal limits. Patchy areas of increased density are scattered throughout both sides of the chest. Bony structures show nothing acute. Impression: 1. Patchy increased density on both sides of the chest. Please rule out COVID-19 pneumonia. Diagnostic code #3
--- NOTE | 2021-06-02 16:35 | EDM.PDOC ---
<Quique Carvalho - Last Filed: 06/02/21 20:22> ED HPI GENERAL MEDICAL PROBLEM - General Chief Complaint: Respiratory Problem Stated Complaint: FEVER Time Seen by Provider: 06/02/21 16:35 - History of Present Illness INITIAL COMMENTS - FREE TEXT/NARRATIVE: 61-year-old male returns to emergency room just not getting better following Covid. Patient has a significant past medical history of CLL. He came down with Covid nearly a month ago and is clearly not getting better. A couple weeks ago he was started on prednisone for hemolytic type anemia. He has been taking this and he has had his hemoglobin hematocrit monitored by hematology and everything is trending better. However the patient is not feeling better. Patient he denies any chest pain or chest pressure he has a hard time catching his breath sometimes he still has a cough. Nonproductive sometimes he feels like he needs to bring some up but just cannot. He has noted fevers as high as 102 at home. They have been checking his O2 at home and he has been in the mid 90% range to lower 90% range. - Related Data Allergies Allergy/AdvReac Type Severity Reaction Status Date / Time No Known Allergies Allergy Verified 06/02/21 15:26 Home Meds: Home Meds predniSONE 20 mg PO WITHBREAKFAST #50 tab 05/24/21 [Rx] lamoTRIgine [Lamotrigine] 200 mg PO BID 05/27/21 [History] Past Medical History HEENT History: Reports: Impaired Vision Other HEENT History: glasses Respiratory History: Reports: Sleep Apnea Other Respiratory History: COVID Gastrointestinal History: Reports: Diverticulosis, Inflammatory Bowel Disease Other Gastrointestinal History: emergent bowel resection in 2003 due to diverticulitis, ulcerative colitis Genitourinary History: Reports: Other (See Below) Other Genitourinary History: frequent bathroom trips. Musculoskeletal History: Reports: Fracture Neurological History: Reports: Concussion, Seizure Psychiatric History: Reports: Anxiety, Depression Hematologic History: Reports: Blood Transfusion(s), Other (See Below) Other Hematologic History: CLL Oncologic (Cancer) History: Reports: Basal Cell Carcinoma, Leukemia Dermatologic History: Reports: Other (See Below) Other Dermatologic History: engraver seals, basal cell CA - Infectious Disease History Infectious Disease History: Reports: Chicken Pox, Mumps, Novel Coronavirus - Past Surgical History HEENT Surgical History: Reports: Oral Surgery, Tonsillectomy GI Surgical History: Reports: Colon, Colonoscopy Musculoskeletal Surgical History: Reports: Shoulder Surgery Social & Family History - Tobacco Use Tobacco Use Status *Q: Never Tobacco User Second Hand Smoke Exposure: No - Caffeine Use Caffeine Use: Reports: Coffee - Living Situation & Occupation Living situation: Reports: , with Spouse, with Family (1 son) Occupation: Employed ([employer]) ED ROS GENERAL - Review of Systems Review Of Systems: See Below Constitutional: Reports: Malaise, Weakness, Fatigue HEENT: Reports: No Symptoms Respiratory: Reports: Cough Cardiovascular: Reports: No Symptoms Endocrine: Reports: No Symptoms GI/Abdominal: Reports: Decreased Appetite : Reports: No Symptoms Musculoskeletal: Reports: No Symptoms Skin: Reports: No Symptoms Neurological: Reports: No Symptoms ED EXAM, GENERAL - Physical Exam Exam: See Below Exam Limited By: No Limitations General Appearance: Alert, No Apparent Distress Eye Exam: Bilateral Eye: Normal Inspection Ears: Normal External Exam, Normal Canal, Hearing Grossly Normal, Normal TMs Nose: Normal Inspection, Normal Mucosa, No Blood Throat/Mouth: Normal Inspection, Normal Lips, Normal Teeth, Normal Gums, Normal Oropharynx, Normal Voice, No Airway Compromise Head: Atraumatic, Normocephalic Neck: Normal Inspection, Supple, Non-Tender, Full Range of Motion Respiratory/Chest: No Respiratory Distress, Normal Breath Sounds, Crackles (Mild bibasilar crackles worse on the left compared to the right) Cardiovascular: Regular Rate, Rhythm, No Edema, Other (I thought I heard a sys tolic murmur but I cannot reproduce it) GI/Abdominal: Normal Bowel Sounds, Soft, Non-Tender (Male) Exam: No Hernia Back Exam: Normal Inspection. No: CVA Tenderness (L), CVA Tenderness (R) Extremities: Normal Inspection Neurological: Alert, CN II-XII Intact #1 Interpretation EKG Date: 06/02/21 Rhythm: NSR Rate (Beats/Min): 66 [place]: Normal P-Wave: Present QRS: Other (Borderline low voltage in the precordial and limb leads) ST-T: Other (Normal ST-T wave changes other than some near isoelectric T waves in aVL) QT: Normal Comparison: NA - No Prior EKG Course - Re-Assessments/Exams Free Text/Narrative Re-Assessment/Exam: 06/02/21 19:32 Labs reviewed we will pursue a CTA. Did try an albuterol MDI patient states it did not hurt may have helped a little bit makes breathing a little easier with this persistently elevated D-dimer we will check a CTA of the chest. proBNP is 815 perhaps a echocardiogram might be of benefit. 06/02/21 21:05 Patient's had an echocardiogram report that showed normal LV and RV function with an EF of 55 to 60% done in September 2019. At this point with the patient's hypoxia I do not feel comfortable sending him home. We will trial ant ibiotics after blood culture obtained and give him a dose of Lasix and see if any this helps him. At this point further care and disposition per Dr. Salazar Departure - Departure Disposition: Admitted As Inpatient 65 Clinical Impression: Pneumonia, Hypoxemia - Discharge Information Referrals: Aron Sweet MD [Primary Care Provider] - Forms: ED Department Discharge Sepsis Event Note (ED) - Evaluation Sepsis Screening Result: No Definite Risk <Aurelio Salazar - Last Filed: 06/03/21 06:33> Course - Vital Signs Last Recorded V/S: Last Vital Signs Temp 38.2 C H 06/03/21 05:44 Pulse 73 06/02/21 15:23 Resp 20 06/02/21 15:23 BP 131/60 06/02/21 15:23 Pulse Ox 91 L 06/02/21 18:55 - Orders/Labs/Meds Orders: Active Orders 24 hr Category Date Time Status Peripheral IV Care [RC] . DIRECTED Care 06/02/21 15:50 Active RT Post Treatment Assessment [RC] Click to Edit Care 06/02/21 17:52 Active RT Pre-Treatment Assessment [RC] Click to Edit Care 06/02/21 17:52 Active BLOOD CULTURE [MREF] Stat Lab 06/02/21 16:10 Received BLOOD CULTURE [MREF] Stat Lab 06/02/21 16:16 Received BLOOD CULTURE [MREF] Stat Lab 06/02/21 21:32 Received BLOOD CULTURE [MREF] Stat Lab 06/02/21 21:42 Received Sodium Chloride 0.9% [Normal Saline] 100 ml Med 06/02/21 21:15 Active IV ASDIRECTED Sodium Chloride 0.9% [Saline Flush] Med 06/02/21 15:49 Active 10 ml FLUSH ASDIRECTED PRN Blood Culture x2 Reflex Set [OM.PC] Stat Oth 06/02/21 15:49 Ordered Blood Culture x2 Reflex Set [OM.PC] Stat Oth 06/02/21 20:56 Ordered Peripheral IV Insertion Adult [OM.PC] Stat Oth 06/02/21 15:49 Ordered Medication Orders Sodium Chloride (Normal Saline) 100 mls @ 120 mls/min IV ASDIRECTED FAINA Last Admin: 06/02/21 21:14 Dose: 120 mls/min Documented by: MELISA Sodium Chloride (Sodium Chloride 0.9% 10 Ml Syringe) 10 ml FLUSH ASDIRECTED PRN PRN Reason: Keep Vein Open Last Admin: 06/02/21 16:15 Dose: 10 ml Documented by: KULDIP Labs: Laboratory Tests 06/02/21 06/02/21 06/02/21 Range/Units 16:10 16:10 16:10 WBC 40.63 H (4.23-9.07) K/mm3 RBC 2.50 L (4.63-6.08) M/mm3 Hgb 7.9 L (13.7-17.5) gm/dl Hct 24.7 L (40.1-51.0) % MCV 98.8 H (79.0-92.2) fl MCH 31.6 (25.7-32.2) pg MCHC 32.0 L (32.2-35.5) g/dl RDW Std Deviation 64.8 H (35.1-43.9) fL Plt Count 313 (163-337) K/mm3 MPV 9.2 L (9.4-12.3) fl Neutrophils % (Manual) 16 L (40-60) % Band Neutrophils % 0 (0-10) % Lymphocytes % (Manual) 74 H (20-40) % Atypical Lymphs % 4 % Monocytes % (Manual) 6 (2-10) % Eosinophils % (Manual) 0 L (0.8-7.0) % Basophils % (Manual) 0 L (0.2-1.2) Platelet Estimate Adequate Polychromasia Few Poikilocytosis 1+ slight Anisocytosis 2+ moderate Macrocytosis 1+ slight Tear Drop Cells Few Ovalocytes 1+ slight RBC Morph Comment Not Reportable D-Dimer, Quantitative (0.19-0.50) mg/L Sodium 129 L (136-145) mEq/L Potassium 4.6 (3.5-5.1) mEq/L Chloride 95 L (98-107) mEq/L Carbon Dioxide 26 (21-32) mEq/L Anion Gap 12.6 (5-15) BUN 22 H (7-18) mg/dL Creatinine 1.2 (0.7-1.3) mg/dL Est Cr Clr Drug Dosing 67.98 mL/min Estimated GFR (MDRD) > 60 (>60) mL/min BUN/Creatinine Ratio 18.3 H (14-18) Glucose 147 H (70-99) mg/dL Lactic Acid (0.4-2.0) mmol/L Calcium 8.2 L (8.5-10.1) mg/dL Total Bilirubin 2.4 H (0.2-1.0) mg/dL AST 43 H (15-37) U/L ALT 42 (16-63) U/L Alkaline Phosphatase 104 (46-116) U/L Troponin I < 0.020 (0.00-0.056) ng/mL C-Reactive Protein 6.7 H* (<1.0) mg/dL NT-Pro-B Natriuret Pep (0-125) pg/mL Total Protein 5.7 L (6.4-8.2) g/dl Albumin 3.0 L (3.4-5.0) g/dl Globulin 2.7 gm/dL Albumin/Globulin Ratio 1.1 (1-2) TSH 3rd Generation (0.358-3.74) uIU/mL 06/02/21 06/02/21 06/02/21 Range/Units 16:10 16:10 17:54 WBC (4.23-9.07) K/mm3 RBC (4.63-6.08) M/mm3 Hgb (13.7-17.5) gm/dl Hct (40.1-51.0) % MCV (79.0-92.2) fl MCH (25.7-32.2) pg MCHC (32.2-35.5) g/dl RDW Std Deviation (35.1-43.9) fL Plt Count (163-337) K/mm3 MPV (9.4-12.3) fl Neutrophils % (Manual) (40-60) % Band Neutrophils % (0-10) % Lymphocytes % (Manual) (20-40) % Atypical Lymphs % % Monocytes % (Manual) (2-10) % Eosinophils % (Manual) (0.8-7.0) % Basophils % (Manual) (0.2-1.2) Platelet Estimate Polychromasia Poikilocytosis Anisocytosis Macrocytosis Tear Drop Cells Ovalocytes RBC Morph Comment D-Dimer, Quantitative 1.73 H (0.19-0.50) mg/L Sodium (136-145) mEq/L Potassium (3.5-5.1) mEq/L Chloride (98-107) mEq/L Carbon Dioxide (21-32) mEq/L Anion Gap (5-15) BUN (7-18) mg/dL Creatinine (0.7-1.3) mg/dL Est Cr Clr Drug Dosing mL/min Estimated GFR (MDRD) (>60) mL/min BUN/Creatinine Ratio (14-18) Glucose (70-99) mg/dL Lactic Acid 1.5 (0.4-2.0) mmol/L Calcium (8.5-10.1) mg/dL Total Bilirubin (0.2-1.0) mg/dL AST (15-37) U/L ALT (16-63) U/L Alkaline Phosphatase (46-116) U/L Troponin I (0.00-0.056) ng/mL C-Reactive Protein (<1.0) mg/dL NT-Pro-B Natriuret Pep 815 H (0-125) pg/mL Total Protein (6.4-8.2) g/dl Albumin (3.4-5.0) g/dl Globulin gm/dL Albumin/Globulin Ratio (1-2) TSH 3rd Generation (0.358-3.74) uIU/mL 06/02/21 Range/Units 17:54 WBC (4.23-9.07) K/mm3 RBC (4.63-6.08) M/mm3 Hgb (13.7-17.5) gm/dl Hct (40.1-51.0) % MCV (79.0-92.2) fl MCH (25.7-32.2) pg MCHC (32.2-35.5) g/dl RDW Std Deviation (35.1-43.9) fL Plt Count (163-337) K/mm3 MPV (9.4-12.3) fl Neutrophils % (Manual) (40-60) % Band Neutrophils % (0-10) % Lymphocytes % (Manual) (20-40) % Atypical Lymphs % % Monocytes % (Manual) (2-10) % Eosinophils % (Manual) (0.8-7.0) % Basophils % (Manual) (0.2-1.2) Platelet Estimate Polychromasia Poikilocytosis Anisocytosis Macrocytosis Tear Drop Cells Ovalocytes RBC Morph Comment D-Dimer, Quantitative (0.19-0.50) mg/L Sodium (136-145) mEq/L Potassium (3.5-5.1) mEq/L Chloride (98-107) mEq/L Carbon Dioxide (21-32) mEq/L Anion Gap (5-15) BUN (7-18) mg/dL Creatinine (0.7-1.3) mg/dL Est Cr Clr Drug Dosing mL/min Estimated GFR (MDRD) (>60) mL/min BUN/Creatinine Ratio (14-18) Glucose (70-99) mg/dL Lactic Acid (0.4-2.0) mmol/L Calcium (8.5-10.1) mg/dL Total Bilirubin (0.2-1.0) mg/dL AST (15-37) U/L ALT (16-63) U/L Alkaline Phosphatase (46-116) U/L Troponin I (0.00-0.056) ng/mL C-Reactive Protein (<1.0) mg/dL NT-Pro-B Natriuret Pep (0-125) pg/mL Total Protein (6.4-8.2) g/dl Albumin (3.4-5.0) g/dl Globulin gm/dL Albumin/Globulin Ratio (1-2) TSH 3rd Generation 0.654 (0.358-3.74) uIU/mL Meds: Medications Generic Name Dose Route Start Last Admin Trade Name Freq PRN Reason Stop Dose Admin Sodium Chloride 100 mls @ 120 mls/min 06/02/21 21:15 06/02/21 21:14 Normal Saline IV 120 mls/min ASDIRECTED FAINA Administration Sodium Chloride 10 ml 06/02/21 15:49 06/02/21 16:15 Sodium Chloride 0.9% 10 Ml Syringe FLUSH 10 ml ASDIRECTED PRN Administration Keep Vein Open Discontinued Medications Generic Name Dose Route Start Last Admin Trade Name Mary PRN Reason Stop Dose Admin Acetaminophen 975 mg 06/02/21 20:11 06/02/21 20:23 Acetaminophen 325 Mg Tab PO 06/02/21 20:12 975 mg NOW ONE Administration Acetaminophen 975 mg 06/03/21 05:39 06/03/21 05:44 Acetaminophen 325 Mg Tab PO 06/03/21 05:40 975 mg NOW ONE Administration Albuterol 0 gm 06/02/21 17:52 06/02/21 18:54 Albuterol 6.7 Gm Inhaler INH 06/02/21 17:53 2 each ONETIME ONE Administration Sodium Chloride 500 mls @ 999 mls/hr 06/02/21 18:13 06/02/21 18:22 Normal Saline IV 06/02/21 18:43 999 mls/hr .BOLUS ONE Administration Doxycycline Hyclate 100 mg/ 100 mls @ 100 mls/hr 06/02/21 20:56 06/02/21 22:25 Sodium Chloride IV 06/02/21 21:55 100 mls/hr ONETIME ONE Administration Ceftriaxone Sodium 1 gm/ 100 mls @ 200 mls/hr 06/02/21 20:56 06/02/21 22:25 Sodium Chloride IV 06/02/21 21:25 200 mls/hr ONETIME ONE Administration Iopamidol 50 ml 06/02/21 21:12 06/02/21 21:13 Iopamidol 755 Mg/Ml 50 Ml Bottle IVPUSH 06/02/21 21:13 50 ml ONETIME ONE Administration Iopamidol 200 ml 06/02/21 21:12 06/02/21 21:13 Iopamidol 755 Mg/Ml 100 Ml Bottle IVPUSH 06/02/21 21:13 200 ml ONETIME ONE Administration Departure - Departure Time of Disposition: 06:32 Sepsis Event Note (ED) - Focused Exam Vital Signs: Vital Signs Temp Pulse Ox 06/03/21 05:44 38.2 C H 06/02/21 20:53 37.8 C 06/02/21 20:23 39.3 C H 06/02/21 18:55 91 L - My Orders Last 24 Hours: My Active Orders 06/02/21 20:56 Blood Culture x2 Reflex Set [OM.PC] Stat 06/02/21 21:32 BLOOD CULTURE [MREF] Stat 06/02/21 21:42 BLOOD CULTURE [MREF] Stat - Assessment/Plan Last 24 Hours: My Active Orders 06/02/21 20:56 Blood Culture x2 Reflex Set [OM.PC] Stat 06/02/21 21:32 BLOOD CULTURE [MREF] Stat 06/02/21 21:42 BLOOD CULTURE [MREF] Stat Assessment:: Assumed care at routine shift change. Patient is pending admission. He remained in the emergency room overnight and boarding status. No further overnight events. Evaluated patient this morning and is nontoxic and not in respiratory distress. A medical bed has become available and patient will be admitted here. Case discussed with Dr. Shipman who agreed accept patient for admission.
[2021-06-02] MEDS ORDERED: Albuterol 6.7 GM Inhaler INH ONE (17:52)
[2021-06-02] MEDS ORDERED: Sodium Chloride 0.9% 500 ML IV ONE (18:13)
[2021-06-02] MEDS ORDERED: Acetaminophen 325 MG Tab PO ONE (20:11)
--- NOTE | 2021-06-02 20:19 | CT ---
CT chest Technique: Multiple axial sections through the chest were obtained. Intravenous contrast was utilized. Study has been performed as a pulmonary angiogram protocol. Study was repeated several times to allow for better contrast enhancement. Contrast enhancement remains less than optimal throughout the studies. Comparison: No prior chest CTs are available, prior chest x-ray performed earlier in the same day (3:54 PM). Findings: Pulmonary arteries are poorly opacified. No filling defects are seen within the main or proximal segmental branches. Smaller thrombus within distal segmental or subsegmental branches could be missed. Thoracic aorta shows no aneurysm. Several mediastinal lymph nodes are seen which are believed to be within normal limits. No axillary adenopathy is seen. Heart is enlarged. Small bilateral pleural effusions are seen on both sides. Visualized upper abdominal structures show nothing acute. Lung window settings were obtained which show diffuse patchy parenchymal densities scattered throughout both lungs. Bone window settings were obtained. Mild degenerative change is scattered within the spine with disc space narrowing and mild endplate osteophytes. Impression: 1. Less than optimal pulmonary angiogram. No filling defects are seen within the main pulmonary arteries or within the proximal segmental branches to indicate pulmonary emboli. Smaller more distal pulmonary emboli could easily be missed. 2. Small bilateral pleural effusions are seen. Mild cardiomegaly is noted. 3. Patchy areas of increased density throughout both lungs. Radiographically the pattern has the appearance of COVID-19 pneumonia. Please correlate. Diagnostic code #3
[2021-06-02] MEDS ORDERED: cefTRIAXone 1 GM in Sodium Chloride 0.9% 100 ML IV ONE (20:56)
[2021-06-02] MEDS ORDERED: Doxycycline 100 MG in Sodium Chloride 0.9% 100 ML IV ONE (20:56)
[2021-06-02] MEDS ORDERED: Iopamidol 755 Mg/ML 100 ML Bottle IVPUSH ONE (21:12)
[2021-06-02] MEDS ORDERED: Iopamidol 755 MG/ML 50 ML Bottle IVPUSH ONE (21:12)
[2021-06-02] MEDS ORDERED: Sodium Chloride 0.9% 100 ML IV SCH (21:15)
[2021-06-03] MEDS ORDERED: Acetaminophen 325 MG Tab PO ONE (05:39)
--- NOTE | 2021-06-03 08:11 | PCM.HP.2 ---
H&P History of Present Illness - General Date of Service: 06/03/21 Admit Problem/Dx: Admission Diagnosis/Problem Admission Diagnosis/Problem Pneumonia - History of Present Illness Initial Comments - Free Text/Narative: 61-year-old male with history of CLL presents to the emergency department with increasing weakness, fatigue, and low oxygen saturations. Patient first developed symptoms of COVID-19 around May 09 and tested positive. He was seen in the emergency department on the and he had a hemoglobin of 4.2. Unfortunately, there were no beds available in [facility] or here and he was treated in the emergency department for anemia. He was given prednisone 100 mg and sent home on this after receiving 4 units of packed red blood cells. Patient returns yesterday with the above complaints. In the emergency department patient was found to be hypoxemic with oxygen saturations in the 80s requiring 2 L nasal cannula. He continues to have fevers and in the emergency department had a fever of 102.7. He was kept in the emergency department overnight because we do not have beds. He was given a dose of Lasix after a CTA of the chest showed mild pleural effusions bilaterally, cardiomegaly, and patchy areas of increased density throughout the lung santiago radiographically consistent with COVID-19 pneumonia. No pulmonary embolism noted but it was a suboptimal study for pulmonary embolism. White count was elevated at 40,000 and hemoglobin was down to 7.9 which is actually up compared to when he was discharged. He was hyponatremic at 129 and renal function was normal with a creatinine of 1.2 and estimated GFR greater than 60. BUN was 22. Lactic acid was 1.5. CRP 6.7. He was given Rocephin and doxycycline in the emergency department for treatment of community acquired pneumonia. - Related Data Allergies/Adverse Reactions: Allergies Allergy/AdvReac Type Severity Reaction Status Date / Time No Known Allergies Allergy Verified 06/02/21 15:26 Home Medications: Home Meds lamoTRIgine [Lamotrigine] 200 mg PO BID 05/27/21 [History] Acetaminophen [Tylenol Extra Strength] 1,000 mg PO TID PRN 06/03/21 [History] predniSONE 100 mg PO WITHBREAKFAST 06/03/21 [History] Past Medical History HEENT History: Reports: Impaired Vision Other HEENT History: glasses Respiratory History: Reports: Sleep Apnea Other Respiratory History: COVID Gastrointestinal History: Reports: Diverticulosis, Inflammatory Bowel Disease Other Gastrointestinal History: emergent bowel resection in 2003 due to diverticulitis, ulcerative colitis Genitourinary History: Reports: Other (See Below) Other Genitourinary History: frequent bathroom trips. Musculoskeletal History: Reports: Fracture Neurological History: Reports: Concussion, Seizure Psychiatric History: Reports: Anxiety, Depression Hematologic History: Reports: Blood Transfusion(s), Other (See Below) Other Hematologic History: CLL Oncologic (Cancer) History: Reports: Basal Cell Carcinoma, Leukemia Dermatologic History: Reports: Other (See Below) Other Dermatologic History: cadet deck, basal cell CA - Infectious Disease History Infectious Disease History: Reports: Chicken Pox, Mumps, Novel Coronavirus - Past Surgical History HEENT Surgical History: Reports: Oral Surgery, Tonsillectomy GI Surgical History: Reports: Colon, Colonoscopy Musculoskeletal Surgical History: Reports: Shoulder Surgery Social & Family History - Tobacco Use Tobacco Use Status *Q: Never Tobacco User Second Hand Smoke Exposure: No - Caffeine Use Caffeine Use: Reports: Coffee - Living Situation & Occupation Living situation: Reports: , with Spouse, with Family (1 son) Occupation: Employed ([employer]) H&P Review of Systems - Review of Systems: Review Of Systems: Comprehensive ROS is negative, except as noted in HPI. Exam - Exam Exam: See Below - Vital Signs Vital Signs: Last Vital Signs Temp 100.7 F H 06/03/21 05:44 Pulse 73 06/02/21 15:23 Resp 20 06/02/21 15:23 BP 131/60 06/02/21 15:23 Pulse Ox 91 L 06/02/21 18:55 Weight: 237 lb 14.4 oz - Exam Quality Assessment: Supplemental Oxygen General: Alert, Oriented, 4 HEENT: Conjunctiva Clear, Mucosa Moist & [place], Normal Nasal Septum Neck: Supple, Trachea Midline, 2 Lungs: Crackles (Bibasilar). No: Normal Respiratory Effort (Increased) Cardiovascular: Regular Rate, Regular Rhythm GI/Abdominal Exam: Normal Bowel Sounds, Soft, Non-Tender, No Distention Back Exam: Normal Inspection Extremities: Normal Inspection, Normal Range of Motion, Non-Tender, No Pedal Edema, Normal Capillary Refill Peripheral Pulses: 2+: Posterior Tibial (L), Posterior Tibial (R), Dorsalis Pedis (L), Dorsalis Pedis (R) Skin: Warm, Dry, Intact Neuro Extensive - Mental Status: Alert, Oriented x3, Normal Mood/Affect, Normal Cognition, Memory Intact Neuro Extensive - Motor, Sensory, Reflexes: CN II-XII Intact Psychiatric: Alert, Normal Affect, Normal Mood - Patient Data Lab Results Last 24 hrs: Laboratory Results - last 24 hr 06/02/21 06/02/21 06/02/21 Range/Units 16:10 16:10 16:10 WBC 40.63 H (4.23-9.07) K/mm3 RBC 2.50 L (4.63-6.08) M/mm3 Hgb 7.9 L (13.7-17.5) gm/dl Hct 24.7 L (40.1-51.0) % MCV 98.8 H (79.0-92.2) fl MCH 31.6 (25.7-32.2) pg MCHC 32.0 L (32.2-35.5) g/dl RDW Std Deviation 64.8 H (35.1-43.9) fL Plt Count 313 (163-337) K/mm3 MPV 9.2 L (9.4-12.3) fl Neutrophils % (Manual) 16 L (40-60) % Band Neutrophils % 0 (0-10) % Lymphocytes % (Manual) 74 H (20-40) % Atypical Lymphs % 4 % Monocytes % (Manual) 6 (2-10) % Eosinophils % (Manual) 0 L (0.8-7.0) % Basophils % (Manual) 0 L (0.2-1.2) Platelet Estimate Adequate Polychromasia Few Poikilocytosis 1+ slight Anisocytosis 2+ moderate Macrocytosis 1+ slight Tear Drop Cells Few Ovalocytes 1+ slight RBC Morph Comment Not Reportable D-Dimer, Quantitative (0.19-0.50) mg/L Sodium 129 L (136-145) mEq/L Potassium 4.6 (3.5-5.1) mEq/L Chloride 95 L (98-107) mEq/L Carbon Dioxide 26 (21-32) mEq/L Anion Gap 12.6 (5-15) BUN 22 H (7-18) mg/dL Creatinine 1.2 (0.7-1.3) mg/dL Est Cr Clr Drug Dosing 67.98 mL/min Estimated GFR (MDRD) > 60 (>60) mL/min BUN/Creatinine Ratio 18.3 H (14-18) Glucose 147 H (70-99) mg/dL Lactic Acid (0.4-2.0) mmol/L Calcium 8.2 L (8.5-10.1) mg/dL Total Bilirubin 2.4 H (0.2-1.0) mg/dL AST 43 H (15-37) U/L ALT 42 (16-63) U/L Alkaline Phosphatase 104 (46-116) U/L Troponin I < 0.020 (0.00-0.056) ng/mL C-Reactive Protein 6.7 H* (<1.0) mg/dL NT-Pro-B Natriuret Pep (0-125) pg/mL Total Protein 5.7 L (6.4-8.2) g/dl Albumin 3.0 L (3.4-5.0) g/dl Globulin 2.7 gm/dL Albumin/Globulin Ratio 1.1 (1-2) TSH 3rd Generation (0.358-3.74) uIU/mL 06/02/21 06/02/21 06/02/21 Range/Units 16:10 16:10 17:54 WBC (4.23-9.07) K/mm3 RBC (4.63-6.08) M/mm3 Hgb (13.7-17.5) gm/dl Hct (40.1-51.0) % MCV (79.0-92.2) fl MCH (25.7-32.2) pg MCHC (32.2-35.5) g/dl RDW Std Deviation (35.1-43.9) fL Plt Count (163-337) K/mm3 MPV (9.4-12.3) fl Neutrophils % (Manual) (40-60) % Band Neutrophils % (0-10) % Lymphocytes % (Manual) (20-40) % Atypical Lymphs % % Monocytes % (Manual) (2-10) % Eosinophils % (Manual) (0.8-7.0) % Basophils % (Manual) (0.2-1.2) Platelet Estimate Polychromasia Poikilocytosis Anisocytosis Macrocytosis Tear Drop Cells Ovalocytes RBC Morph Comment D-Dimer, Quantitative 1.73 H (0.19-0.50) mg/L Sodium (136-145) mEq/L Potassium (3.5-5.1) mEq/L Chloride (98-107) mEq/L Carbon Dioxide (21-32) mEq/L Anion Gap (5-15) BUN (7-18) mg/dL Creatinine (0.7-1.3) mg/dL Est Cr Clr Drug Dosing mL/min Estimated GFR (MDRD) (>60) mL/min BUN/Creatinine Ratio (14-18) Glucose (70-99) mg/dL Lactic Acid 1.5 (0.4-2.0) mmol/L Calcium (8.5-10.1) mg/dL Total Bilirubin (0.2-1.0) mg/dL AST (15-37) U/L ALT (16-63) U/L Alkaline Phosphatase (46-116) U/L Troponin I (0.00-0.056) ng/mL C-Reactive Protein (<1.0) mg/dL NT-Pro-B Natriuret Pep 815 H (0-125) pg/mL Total Protein (6.4-8.2) g/dl Albumin (3.4-5.0) g/dl Globulin gm/dL Albumin/Globulin Ratio (1-2) TSH 3rd Generation (0.358-3.74) uIU/mL 06/02/21 Range/Units 17:54 WBC (4.23-9.07) K/mm3 RBC (4.63-6.08) M/mm3 Hgb (13.7-17.5) gm/dl Hct (40.1-51.0) % MCV (79.0-92.2) fl MCH (25.7-32.2) pg MCHC (32.2-35.5) g/dl RDW Std Deviation (35.1-43.9) fL Plt Count (163-337) K/mm3 MPV (9.4-12.3) fl Neutrophils % (Manual) (40-60) % Band Neutrophils % (0-10) % Lymphocytes % (Manual) (20-40) % Atypical Lymphs % % Monocytes % (Manual) (2-10) % Eosinophils % (Manual) (0.8-7.0) % Basophils % (Manual) (0.2-1.2) Platelet Estimate Polychromasia Poikilocytosis Anisocytosis Macrocytosis Tear Drop Cells Ovalocytes RBC Morph Comment D-Dimer, Quantitative (0.19-0.50) mg/L Sodium (136-145) mEq/L Potassium (3.5-5.1) mEq/L Chloride (98-107) mEq/L Carbon Dioxide (21-32) mEq/L Anion Gap (5-15) BUN (7-18) mg/dL Creatinine (0.7-1.3) mg/dL Est Cr Clr Drug Dosing mL/min Estimated GFR (MDRD) (>60) mL/min BUN/Creatinine Ratio (14-18) Glucose (70-99) mg/dL Lactic Acid (0.4-2.0) mmol/L Calcium (8.5-10.1) mg/dL Total Bilirubin (0.2-1.0) mg/dL AST (15-37) U/L ALT (16-63) U/L Alkaline Phosphatase (46-116) U/L Troponin I (0.00-0.056) ng/mL C-Reactive Protein (<1.0) mg/dL NT-Pro-B Natriuret Pep (0-125) pg/mL Total Protein (6.4-8.2) g/dl Albumin (3.4-5.0) g/dl Globulin gm/dL Albumin/Globulin Ratio (1-2) TSH 3rd Generation 0.654 (0.358-3.74) uIU/mL Result Diagrams: 06/02/21 16:10 06/02/21 16:10 Sepsis Event Note - Evaluation Sepsis Screening Result: No Definite Risk - Focused Exam Vital Signs: Vital Signs Temp 06/03/21 05:44 100.7 F H 06/02/21 20:53 100.1 F 06/02/21 20:23 102.8 F H - Problem List (1) Hypoxemia SNOMED Code(s): 977110894 ICD Code: R09.02 - HYPOXEMIA Status: Acute Current Visit: Yes (2) Pneumonia SNOMED Code(s): 511353284 ICD Code: J18.9 - PNEUMONIA, UNSPECIFIED ORGANISM Status: Acute Current Visit: Yes (3) Anemia SNOMED Code(s): 476095595 ICD Code: D64.9 - ANEMIA, UNSPECIFIED Status: Acute Current Visit: No (4) CLL (chronic lymphocytic leukemia) SNOMED Code(s): 87415414 ICD Code: C91.10 - CHRONIC LYMPHOCYTIC LEUK OF B-CELL TYPE NOT ACHIEVE REMIS Status: Acute Current Visit: No (5) Hyponatremia SNOMED Code(s): 61184932 ICD Code: E87.1 - HYPO-OSMOLALITY AND HYPONATREMIA Status: Acute Current Visit: Yes Problem List Initiated/Reviewed/Updated: Yes Orders Last 24hrs: Active Orders 24 hr Category Date Time Status Admission Status [Patient Status] [ADT] Routine ADT 06/03/21 06:34 Active Peripheral IV Care [RC] . DIRECTED Care 06/02/21 15:50 Active RT Post Treatment Assessment [RC] Click to Edit Care 06/02/21 17:52 Active RT Pre-Treatment Assessment [RC] Click to Edit Care 06/02/21 17:52 Active BLOOD CULTURE [MREF] Stat Lab 06/02/21 16:10 Received BLOOD CULTURE [MREF] Stat Lab 06/02/21 16:16 Received BLOOD CULTURE [MREF] Stat Lab 06/02/21 21:32 Received BLOOD CULTURE [MREF] Stat Lab 06/02/21 21:42 Received Sodium Chloride 0.9% [Normal Saline] 100 ml Med 06/02/21 21:15 Active IV ASDIRECTED Sodium Chloride 0.9% [Saline Flush] Med 06/02/21 15:49 Active 10 ml FLUSH ASDIRECTED PRN Blood Culture x2 Reflex Set [OM.PC] Stat Oth 06/02/21 15:49 Ordered Blood Culture x2 Reflex Set [OM.PC] Stat Oth 06/02/21 20:56 Ordered Peripheral IV Insertion Adult [OM.PC] Stat Oth 06/02/21 15:49 Ordered Medication Orders Sodium Chloride (Normal Saline) 100 mls @ 120 mls/min IV ASDIRECTED FAINA Last Admin: 06/02/21 21:14 Dose: 120 mls/min Documented by: MELISA Sodium Chloride (Sodium Chloride 0.9% 10 Ml Syringe) 10 ml FLUSH ASDIRECTED PRN PRN Reason: Keep Vein Open Last Admin: 06/02/21 16:15 Dose: 10 ml Documented by: KULDIP Assessment/Plan Comment:: 61-year-old male with CLL and recent COVID-19 pneumonia is admitted with hypoxemia and worsening fatigue. CLL COVID-19 pneumonia versus community-acquired pneumonia Hypoxemia * Patient was in the emergency department for over 24 hours on May 22 secondary to anemia and COVID-19. * Patient diagnosed with COVID-19 on May 09 * It is possible the patient has long Covid and his fevers are secondary to continued viral activity. * Patient also may have a secondary bacterial pneumonia. * I spoke with Dr. Garzon, infectious disease specialist in [facility] who recommended starting antibiotics which includes vancomycin, cefepime, and levofloxacin until procalcitonin and blood cultures return. * I spoke with the oncologist addiction treatment counselor at [facility] in [place], Dr. Frias, who stated the white count could be elevated both by the CLL and steroids. She had no real recommendations on treatment other than continuing with steroids. * Patient did have a fever of 102 in the emergency department. * Fevers could be secondary to CLL, COVID-19 pneumonia, bacterial infection including pneumonia or bacteremia * Requiring 2 L nasal cannula secondary to hypoxemia. Anemia * Hemoglobin was 7.9 * Discharge from emergency department on May 22 it was 7.2. Hyponatremia * Likely either from increased oral intake versus lung infection and SIADH. * Sodium [address] scan with cardiomegaly * Echocardiogram from September 2019 showed a normal ejection fraction of 55 to 60%. Normal LV and RV function. * Given Lasix in the emergency department. * Requiring 2 L nasal cannula secondary to hypoxemia. Plan * Admit to medical floor * Get procalcitonin, IgG level, SARS-CoV-2 IgG * Titrate oxygen to keep SPO2 above 90%. * Start vancomycin, cefepime, and vancomycin * Follow blood cultures * Lasix 40 mg IV x1 * Tylenol for fevers * Follow CBC, CMP * Continue prednisone 100 mg daily * VTE prophylaxis with Lovenox * CODE STATUS: Full code - Mortality Measure Prognosis:: Good
[2021-06-03] MEDS ORDERED: Furosemide 40 MG/4 ML VIAL IVPUSH ONE (08:54)
[2021-06-03] MEDS ORDERED: oxyCODONE 5 MG Tab PO PRN (09:12)
[2021-06-03] MEDS ORDERED: Ondansetron 4 MG/2 ML SDV IV PRN (09:12)
[2021-06-03] MEDS ORDERED: Albuterol 0.083% 2.5 MG/3 ML Neb Soln NEB PRN (09:12)
[2021-06-03] MEDS: lamoTRIgine 100 MG Tab PO SCH ×2 (09:20→22:39)
[2021-06-03] MEDS ORDERED: Levofloxacin/Dextrose 5%-Water 750 MG in Premix Bag 1 BAG IV SCH (09:30)
[2021-06-03] MEDS ORDERED: predniSONE 20 MG Tab PO ONE (10:15)
[2021-06-03] MEDS ORDERED: Vancomycin 2 GM in Sodium Chloride 0.9% 500 ML IV ONE (10:30)
[2021-06-03] MEDS: Cefepime 2 GM in Sodium Chloride 0.9% 50 ML IV SCH ×2 (10:40→18:23)
[2021-06-03] MEDS: Enoxaparin 40 MG/0.4 ML Syringe SUBCUT SCH (10:49)
[2021-06-03] MEDS: Acetaminophen 325 MG Tab PO PRN ×2 (11:27→22:41)
[2021-06-03] MEDS: Albuterol/Ipratropium 3.0-0.5 MG/3 ML Neb Soln NEB PRN (23:28)
[2021-06-04] MEDS: Cefepime 2 GM in Sodium Chloride 0.9% 50 ML IV SCH ×3 (03:26→17:50)
[2021-06-04] MEDS: Acetaminophen 325 MG Tab PO PRN ×3 (06:01→23:58)
[2021-06-04] MEDS ORDERED: Magnesium Hydroxide 400 MG/5 ML Susp 30 ML Cup PO ONE (07:00)
[2021-06-04] MEDS: predniSONE 20 MG Tab PO SCH (07:08)
[2021-06-04] MEDS: Albuterol/Ipratropium 3.0-0.5 MG/3 ML Neb Soln NEB PRN ×2 (07:49→21:16)
[2021-06-04] MEDS: lamoTRIgine 100 MG Tab PO SCH ×2 (09:04→20:47)
[2021-06-04] MEDS: Enoxaparin 40 MG/0.4 ML Syringe SUBCUT SCH (09:05)
[2021-06-04] MEDS ORDERED: Furosemide 40 MG/4 ML VIAL IVPUSH ONE (11:14)
[2021-06-04] MEDS: Cholecalciferol (Vitamin D3) 5,000 UNIT Cap PO SCH (12:24)
[2021-06-04] MEDS: Zinc Sulfate 220 MG Cap PO SCH (12:25)
--- NOTE | 2021-06-04 14:51 | PCM.PN ---
- General Info Date of Service: 06/04/21 Admission Dx/Problem (Free Text): Admission Diagnosis/Problem Admission Diagnosis/Problem Pneumonia Subjective Update: Patient states he is not much different than yesterday. He has been essentially afebrile since yesterday around 1300. Early this morning, around 0600 hrs. he did have a temperature of 100.6. White count did go up to 43,000 with 72% lymphocytes and 4% atypical lymphs.. Procalcitonin was 0.59. This morning's CBC did show some toxic granulation. Functional Status: Reports: Pain Controlled - Review of Systems General: Reports: Fatigue HEENT: Reports: No Symptoms Pulmonary: Reports: Shortness of Breath, Cough Cardiovascular: Reports: No Symptoms Gastrointestinal: Reports: No Symptoms Musculoskeletal: Reports: No Symptoms - Patient Data Vitals - Most Recent: Last Vital Signs Temp 98.8 F 06/04/21 11:28 Pulse 61 06/04/21 11:28 Resp 18 06/04/21 11:28 BP 119/52 L 06/04/21 11:28 Pulse Ox 94 L 06/04/21 11:28 Weight - Most Recent: 234 lb 12.8 oz I&O - Last 24 Hours: Intake & Output 06/03/21 06/04/21 06/04/21 22:59 06:59 14:59 Intake Total 1725 1150 120 Balance 1725 1150 120 Lab Results Last 24 Hours: Laboratory Results - last 24 hr 06/02/21 06/02/21 06/04/21 Range/Units 16:10 16:10 06:10 WBC 43.18 H (4.23-9.07) K/mm3 RBC 2.56 L (4.63-6.08) M/mm3 Hgb 7.9 L (13.7-17.5) gm/dl Hct 25.3 L (40.1-51.0) % MCV 98.8 H (79.0-92.2) fl MCH 30.9 (25.7-32.2) pg MCHC 31.2 L (32.2-35.5) g/dl RDW Std Deviation 66.1 H (35.1-43.9) fL Plt Count 333 (163-337) K/mm3 MPV 9.0 L (9.4-12.3) fl Neut % (Auto) Cancelled Lymph % (Auto) Cancelled Morrow % (Auto) Cancelled Eos % (Auto) Cancelled Baso % (Auto) Cancelled Neut # (Auto) Cancelled Lymph # (Auto) Cancelled Morrow # (Auto) Cancelled Eos # (Auto) Cancelled Baso # (Auto) Cancelled Neutrophils % (Manual) 21 L (40-60) % Band Neutrophils % 3 (0-10) % Lymphocytes % (Manual) 72 H (20-40) % Atypical Lymphs % 4 % Monocytes % (Manual) 0 L (2-10) % Eosinophils % (Manual) 0 L (0.8-7.0) % Basophils % (Manual) 0 L (0.2-1.2) Manual Slide Review Cancelled Toxic Granulation 1+ slight Platelet Estimate Adequate Plt Morphology Comment Normal Polychromasia 1+ slight Anisocytosis 3+ marked Macrocytosis 1+ slight Spherocytes Few Stomatocytes Few Acanthocytes (Spur) Few Schistocytes Few RBC Morph Comment Sodium (136-145) mEq/L Potassium (3.5-5.1) mEq/L Chloride (98-107) mEq/L Carbon Dioxide (21-32) mEq/L Anion Gap (5-15) BUN (7-18) mg/dL Creatinine (0.7-1.3) mg/dL Est Cr Clr Drug Dosing mL/min Estimated GFR (MDRD) (>60) mL/min BUN/Creatinine Ratio (14-18) Glucose (70-99) mg/dL Calcium (8.5-10.1) mg/dL Phosphorus (2.6-4.7) mg/dL Magnesium (1.8-2.4) mg/dL Total Bilirubin (0.2-1.0) mg/dL AST (15-37) U/L ALT (16-63) U/L Alkaline Phosphatase (46-116) U/L C-Reactive Protein (<1.0) mg/dL Total Protein (6.4-8.2) g/dl Albumin (3.4-5.0) g/dl Globulin gm/dL Albumin/Globulin Ratio (1-2) Vitamin D 25-Hydroxy (30.0-100.0) ng/ml Procalcitonin 0.59 H ng/mL SARS-CoV-2 IgG Ab Reactive H (Non-Reactive) 06/04/21 06/04/21 Range/Units 06:10 06:10 WBC (4.23-9.07) K/mm3 RBC (4.63-6.08) M/mm3 Hgb (13.7-17.5) gm/dl Hct (40.1-51.0) % MCV (79.0-92.2) fl MCH (25.7-32.2) pg MCHC (32.2-35.5) g/dl RDW Std Deviation (35.1-43.9) fL Plt Count (163-337) K/mm3 MPV (9.4-12.3) fl Neut % (Auto) Lymph % (Auto) Morrow % (Auto) Eos % (Auto) Baso % (Auto) Neut # (Auto) Lymph # (Auto) Morrow # (Auto) Eos # (Auto) Baso # (Auto) Neutrophils % (Manual) (40-60) % Band Neutrophils % (0-10) % Lymphocytes % (Manual) (20-40) % Atypical Lymphs % % Monocytes % (Manual) (2-10) % Eosinophils % (Manual) (0.8-7.0) % Basophils % (Manual) (0.2-1.2) Manual Slide Review Toxic Granulation Platelet Estimate Plt Morphology Comment Polychromasia Anisocytosis Macrocytosis Spherocytes Stomatocytes Acanthocytes (Spur) Schistocytes RBC Morph Comment Sodium 129 L (136-145) mEq/L Potassium 4.2 (3.5-5.1) mEq/L Chloride 94 L (98-107) mEq/L Carbon Dioxide 26 (21-32) mEq/L Anion Gap 13.2 (5-15) BUN 23 H (7-18) mg/dL Creatinine 1.2 (0.7-1.3) mg/dL Est Cr Clr Drug Dosing 67.98 mL/min Estimated GFR (MDRD) > 60 (>60) mL/min BUN/Creatinine Ratio 19.2 H (14-18) Glucose 101 H (70-99) mg/dL Calcium 8.0 L (8.5-10.1) mg/dL Phosphorus 3.9 (2.6-4.7) mg/dL Magnesium 2.2 (1.8-2.4) mg/dL Total Bilirubin 1.9 H (0.2-1.0) mg/dL AST 33 (15-37) U/L ALT 34 (16-63) U/L Alkaline Phosphatase 92 (46-116) U/L C-Reactive Protein 9.2 H* (<1.0) mg/dL Total Protein 5.0 L (6.4-8.2) g/dl Albumin 2.9 L (3.4-5.0) g/dl Globulin 2.1 gm/dL Albumin/Globulin Ratio 1.4 (1-2) Vitamin D 25-Hydroxy 61.5 (30.0-100.0) ng/ml Procalcitonin ng/mL SARS-CoV-2 IgG Ab (Non-Reactive) Mason Results Last 24 Hours: Microbiology 06/02/21 21:42 Blood Culture - Preliminary Blood - Venous - Lab Draw 06/02/21 21:32 Blood Culture - Preliminary Blood - Venous 06/02/21 16:16 Blood Culture - Preliminary Blood - Venous - Lab Draw 06/02/21 16:10 Blood Culture - Preliminary Blood - Venous Med Orders - Current: Current Medications Acetaminophen (Acetaminophen 325 Mg Tab) 975 mg PO Q6H PRN PRN Reason: Pain (Mild 1-3)/fever Last Admin: 06/04/21 06:01 Dose: 975 mg Documented by: Albuterol (Albuterol 0.083% 2.5 Mg/3 Ml Neb Soln) 2.5 mg NEB Q2H PRN PRN Reason: Shortness Of Breath/wheezing Albuterol/Ipratropium (Albuterol/Ipratropium 3.0-0.5 Mg/3 Ml Neb Soln) 3 ml NEB Q4H PRN PRN Reason: Shortness Of Breath/wheezing Last Admin: 06/04/21 07:49 Dose: 3 ml Documented by: Cholecalciferol (Cholecalciferol (Vitamin D3) 5,000 Unit Cap) 5,000 unit PO DAILY [facility] Last Admin: 06/04/21 12:24 Dose: 5,000 unit Documented by: Enoxaparin Sodium (Enoxaparin 40 Mg/0.4 Ml Syringe) 40 mg SUBCUT DAILY [facility] Last Admin: 06/04/21 09:05 Dose: 40 mg Documented by: Famotidine (Famotidine 20 Mg Tab) 20 mg PO BID [facility] Cefepime HCl 2 gm/ Sodium (Chloride) 50 mls @ 100 mls/hr IV Q8H [facility] Last Admin: 06/04/21 09:31 Dose: 100 mls/hr Documented by: Vancomycin HCl 1 gm/Vancomycin HCl 250 mg/ Sodium Chloride 250 mls @ 166.667 mls/hr IV Q12H [facility] Last Admin: 06/04/21 10:15 Dose: 166.667 mls/hr Documented by: Doxycycline Hyclate 100 mg/ (Sodium Chloride) 100 mls @ 100 mls/hr IV Q12HR [facility] Lamotrigine (Lamotrigine 100 Mg Tab) 200 mg PO BID [facility] Last Admin: 06/04/21 09:04 Dose: 200 mg Documented by: Mupirocin (Mupirocin Oint 22 Gm Tube) 0 gm TOP TID [facility] Ondansetron HCl (Ondansetron 4 Mg/2 Ml Sdv) 4 mg IV Q6H PRN PRN Reason: Nausea/Vomiting Oxycodone HCl (Oxycodone 5 Mg Tab) 5 mg PO Q4H PRN PRN Reason: Pain (moderate 4-6) Prednisone (Prednisone 20 Mg Tab) 100 mg PO WITHBREAKFAST [facility] Last Admin: 06/04/21 07:08 Dose: 100 mg Documented by: Sodium Chloride (Sodium Chloride 0.9% 10 Ml Syringe) 10 ml FLUSH ASDIRECTED PRN PRN Reason: Keep Vein Open Last Admin: 06/02/21 16:15 Dose: 10 ml Documented by: Vancomycin HCl (Pharmacy To Dose - Vancomycin) 1 dose .XX ASDIRECTED [facility] Zinc Sulfate (Zinc Sulfate 220 Mg Cap) 220 mg PO DAILY [facility] Last Admin: 06/04/21 12:25 Dose: 220 mg Documented by: Discontinued Medications Acetaminophen (Acetaminophen 325 Mg Tab) 975 mg PO NOW ONE Stop: 06/02/21 20:12 Last Admin: 06/02/21 20:23 Dose: 975 mg Documented by: Acetaminophen (Acetaminophen 325 Mg Tab) 975 mg PO NOW ONE Stop: 06/03/21 05:40 Last Admin: 06/03/21 05:44 Dose: 975 mg Documented by: Albuterol (Albuterol 6.7 Gm Inhaler) 0 gm INH ONETIME ONE Stop: 06/02/21 17:53 Last Admin: 06/02/21 18:54 Dose: 2 each Documented by: Doxycycline Monohydrate (Doxycycline Susp 25 Mg/5 Ml 60 Ml Bottle) 100 mg PO Q12HR [facility] Furosemide (Furosemide 40 Mg/4 Ml Vial) 40 mg IVPUSH NOW ONE Stop: 06/03/21 08:55 Last Admin: 06/03/21 09:20 Dose: 40 mg Documented by: Furosemide (Furosemide 40 Mg/4 Ml Vial) 40 mg IVPUSH NOW ONE Stop: 06/04/21 11:15 Last Admin: 06/04/21 12:24 Dose: 40 mg Documented by: Sodium Chloride (Normal Saline) 500 mls @ 999 mls/hr IV .BOLUS ONE Stop: 06/02/21 18:43 Last Admin: 06/02/21 18:22 Dose: 999 mls/hr Documented by: Doxycycline Hyclate 100 mg/ (Sodium Chloride) 100 mls @ 100 mls/hr IV ONETIME ONE Stop: 06/02/21 21:55 Last Admin: 06/02/21 22:25 Dose: 100 mls/hr Documented by: Ceftriaxone Sodium 1 gm/ (Sodium Chloride) 100 mls @ 200 mls/hr IV ONETIME ONE Stop: 06/02/21 21:25 Last Admin: 06/02/21 22:25 Dose: 200 mls/hr Documented by: Sodium Chloride (Normal Saline) 100 mls @ 120 mls/min IV ASDIRECTED [facility] Last Admin: 06/02/21 21:14 Dose: 120 mls/min Documented by: Levofloxacin/Dextrose 750 mg/ (Premix) 150 mls @ 100 mls/hr IV Q24H [facility] Last Admin: 06/03/21 10:40 Dose: 100 mls/hr Documented by: Vancomycin HCl 2 gm/ Sodium (Chloride) 500 mls @ 250 mls/hr IV ONETIME ONE Stop: 06/03/21 12:29 Last Admin: 06/03/21 11:33 Dose: 250 mls/hr Documented by: Iopamidol (Iopamidol 755 Mg/Ml 50 Ml Bottle) 50 ml IVPUSH ONETIME ONE Stop: 06/02/21 21:13 Last Admin: 06/02/21 21:13 Dose: 50 ml Documented by: Iopamidol (Iopamidol 755 Mg/Ml 100 Ml Bottle) 200 ml IVPUSH ONETIME ONE Stop: 06/02/21 21:13 Last Admin: 06/02/21 21:13 Dose: 200 ml Documented by: Magnesium Hydroxide (Magnesium Hydroxide 400 Mg/5 Ml Susp 30 Ml Cup) 30 ml PO ONETIME ONE Stop: 06/04/21 07:01 Last Admin: 06/04/21 07:07 Dose: 30 ml Documented by: Prednisone (Prednisone 20 Mg Tab) 100 mg PO ONETIME ONE Stop: 06/03/21 10:16 Last Admin: 06/03/21 10:27 Dose: 100 mg Documented by: - Exam Quality Assessment: Supplemental Oxygen (3 to 4 L) General: Alert, Oriented HEENT: Pupils Equal, Mucous Membr. Moist/Point Lay Neck: Supple Lungs: Normal Respiratory Effort, Crackles (Bibasilar) Cardiovascular: Regular Rate, Regular Rhythm GI/Abdominal Exam: Normal Bowel Sounds, Soft, Non-Tender, No Distention Extremities: Normal Inspection, Normal Range of Motion, Non-Tender, No Pedal Edema, Normal Capillary Refill Skin: Warm, Dry, Intact Neurological: No New Focal Deficit Psy/Mental Status: Alert, Normal Affect, Normal Mood - Patient Data Lab Results Last 24 hrs: Laboratory Results - last 24 hr 06/02/21 06/02/21 06/04/21 Range/Units 16:10 16:10 06:10 WBC 43.18 H (4.23-9.07) K/mm3 RBC 2.56 L (4.63-6.08) M/mm3 Hgb 7.9 L (13.7-17.5) gm/dl Hct 25.3 L (40.1-51.0) % MCV 98.8 H (79.0-92.2) fl MCH 30.9 (25.7-32.2) pg MCHC 31.2 L (32.2-35.5) g/dl RDW Std Deviation 66.1 H (35.1-43.9) fL Plt Count 333 (163-337) K/mm3 MPV 9.0 L (9.4-12.3) fl Neut % (Auto) Cancelled Lymph % (Auto) Cancelled Morrow % (Auto) Cancelled Eos % (Auto) Cancelled Baso % (Auto) Cancelled Neut # (Auto) Cancelled Lymph # (Auto) Cancelled Morrow # (Auto) Cancelled Eos # (Auto) Cancelled Baso # (Auto) Cancelled Neutrophils % (Manual) 21 L (40-60) % Band Neutrophils % 3 (0-10) % Lymphocytes % (Manual) 72 H (20-40) % Atypical Lymphs % 4 % Monocytes % (Manual) 0 L (2-10) % Eosinophils % (Manual) 0 L (0.8-7.0) % Basophils % (Manual) 0 L (0.2-1.2) Manual Slide Review Cancelled Toxic Granulation 1+ slight Platelet Estimate Adequate Plt Morphology Comment Normal Polychromasia 1+ slight Anisocytosis 3+ marked Macrocytosis 1+ slight Spherocytes Few Stomatocytes Few Acanthocytes (Spur) Few Schistocytes Few RBC Morph Comment Sodium (136-145) mEq/L Potassium (3.5-5.1) mEq/L Chloride (98-107) mEq/L Carbon Dioxide (21-32) mEq/L Anion Gap (5-15) BUN (7-18) mg/dL Creatinine (0.7-1.3) mg/dL Est Cr Clr Drug Dosing mL/min Estimated GFR (MDRD) (>60) mL/min BUN/Creatinine Ratio (14-18) Glucose (70-99) mg/dL Calcium (8.5-10.1) mg/dL Phosphorus (2.6-4.7) mg/dL Magnesium (1.8-2.4) mg/dL Total Bilirubin (0.2-1.0) mg/dL AST (15-37) U/L ALT (16-63) U/L Alkaline Phosphatase (46-116) U/L C-Reactive Protein (<1.0) mg/dL Total Protein (6.4-8.2) g/dl Albumin (3.4-5.0) g/dl Globulin gm/dL Albumin/Globulin Ratio (1-2) Vitamin D 25-Hydroxy (30.0-100.0) ng/ml Procalcitonin 0.59 H ng/mL SARS-CoV-2 IgG Ab Reactive H (Non-Reactive) 06/04/21 06/04/21 Range/Units 06:10 06:10 WBC (4.23-9.07) K/mm3 RBC (4.63-6.08) M/mm3 Hgb (13.7-17.5) gm/dl Hct (40.1-51.0) % MCV (79.0-92.2) fl MCH (25.7-32.2) pg MCHC (32.2-35.5) g/dl RDW Std Deviation (35.1-43.9) fL Plt Count (163-337) K/mm3 MPV (9.4-12.3) fl Neut % (Auto) Lymph % (Auto) Morrow % (Auto) Eos % (Auto) Baso % (Auto) Neut # (Auto) Lymph # (Auto) Morrow # (Auto) Eos # (Auto) Baso # (Auto) Neutrophils % (Manual) (40-60) % Band Neutrophils % (0-10) % Lymphocytes % (Manual) (20-40) % Atypical Lymphs % % Monocytes % (Manual) (2-10) % Eosinophils % (Manual) (0.8-7.0) % Basophils % (Manual) (0.2-1.2) Manual Slide Review Toxic Granulation Platelet Estimate Plt Morphology Comment Polychromasia Anisocytosis Macrocytosis Spherocytes Stomatocytes Acanthocytes (Spur) Schistocytes RBC Morph Comment Sodium 129 L (136-145) mEq/L Potassium 4.2 (3.5-5.1) mEq/L Chloride 94 L (98-107) mEq/L Carbon Dioxide 26 (21-32) mEq/L Anion Gap 13.2 (5-15) BUN 23 H (7-18) mg/dL Creatinine 1.2 (0.7-1.3) mg/dL Est Cr Clr Drug Dosing 67.98 mL/min Estimated GFR (MDRD) > 60 (>60) mL/min BUN/Creatinine Ratio 19.2 H (14-18) Glucose 101 H (70-99) mg/dL Calcium 8.0 L (8.5-10.1) mg/dL Phosphorus 3.9 (2.6-4.7) mg/dL Magnesium 2.2 (1.8-2.4) mg/dL Total Bilirubin 1.9 H (0.2-1.0) mg/dL AST 33 (15-37) U/L ALT 34 (16-63) U/L Alkaline Phosphatase 92 (46-116) U/L C-Reactive Protein 9.2 H* (<1.0) mg/dL Total Protein 5.0 L (6.4-8.2) g/dl Albumin 2.9 L (3.4-5.0) g/dl Globulin 2.1 gm/dL Albumin/Globulin Ratio 1.4 (1-2) Vitamin D 25-Hydroxy 61.5 (30.0-100.0) ng/ml Procalcitonin ng/mL SARS-CoV-2 IgG Ab (Non-Reactive) Result Diagrams: 06/04/21 06:10 06/04/21 06:10 Mason Results Last 24 hrs: Microbiology 06/02/21 21:42 Blood Culture - Preliminary Blood - Venous - Lab Draw 06/02/21 21:32 Blood Culture - Preliminary Blood - Venous 06/02/21 16:16 Blood Culture - Preliminary Blood - Venous - Lab Draw 06/02/21 16:10 Blood Culture - Preliminary Blood - Venous Sepsis Event Note - Evaluation Sepsis Screening Result: Sepsis Risk - Focused Exam Vital Signs: Vital Signs Temp Pulse Resp BP Pulse Ox Pulse Ox 06/04/21 11:28 98.8 F 61 18 119/52 L 94 L 06/04/21 08:28 99.7 F 69 32 H 115/43 L 94 L 06/04/21 07:46 88 L 06/04/21 06:31 99.5 F 06/04/21 06:01 100.6 F 06/04/21 05:48 100.6 F 06/04/21 03:48 62 16 121/61 90 L - Problem List & Annotations (1) Hypoxemia SNOMED Code(s): 634491958 Code(s): R09.02 - HYPOXEMIA Status: Acute Current Visit: Yes (2) Pneumonia SNOMED Code(s): 173090227 Code(s): J18.9 - PNEUMONIA, UNSPECIFIED ORGANISM Status: Acute Current Visit: Yes (3) Anemia SNOMED Code(s): 400573112 Code(s): D64.9 - ANEMIA, UNSPECIFIED Status: Acute Current Visit: No (4) CLL (chronic lymphocytic leukemia) SNOMED Code(s): 82951808 Code(s): C91.10 - CHRONIC LYMPHOCYTIC LEUK OF B-CELL TYPE NOT ACHIEVE REMIS Status: Acute Current Visit: No (5) Hyponatremia SNOMED Code(s): 46223840 Code(s): E87.1 - HYPO-OSMOLALITY AND HYPONATREMIA Status: Acute Current Visit: Yes - Problem List Review Problem List Initiated/Reviewed/Updated: Yes - My Orders Last 24 Hours: My Active Orders 06/03/21 18:20 Pulse Oximetry [RC] CONTINUOUS 06/03/21 22:30 Vancomycin 1 gm Vancomycin 250 mg Sodium Chloride 0.9% [Normal Saline] 250 ml IV Q12H 06/03/21 23:34 RT Incentive Spirometry [RC] ASDIRECTED 06/04/21 07:00 predniSONE 100 mg PO WITHBREAKFAST 06/04/21 11:15 Zinc Sulfate [Zincate] 220 mg PO DAILY 06/04/21 11:30 Cholecalciferol (Vitamin D3) [Vitamin D3] 5,000 unit PO DAILY 06/04/21 15:00 Mupirocin Oint [Bactroban Oint] 0 gm TOP TID 06/04/21 21:00 Doxycycline [Vibramycin] 100 mg Sodium Chloride 0.9% [Normal Saline] 100 ml IV Q12HR Famotidine [Pepcid] 20 mg PO BID 06/04/21 22:00 VANCOMYCIN TROUGH [CHEM] Timed - Plan Plan:: 61-year-old male with CLL and recent COVID-19 pneumonia is admitted with hypoxemia and worsening fatigue. CLL COVID-19 pneumonia versus community-acquired pneumonia Hypoxemia * Patient was in the emergency department for over 24 hours on May 22 secondary to anemia and COVID-19. * Patient diagnosed with COVID-19 on May 09 * It is possible the patient has long Covid and his fevers are secondary to continued viral activity. * Patient also may have a secondary bacterial pneumonia. * I spoke with Dr. Garzon, infectious disease specialist in [facility] who recommended starting antibiotics which includes vancomycin, ce fepime, and levofloxacin until procalcitonin and blood cultures return. * I spoke with the oncologist communications department chair at [facility] in [place], Dr. Frias, who stated the white count could be elevated both by the CLL and steroids. She had no real recommendations on treatment other than continuing with steroids. * Patient did have a fever of 102 in the emergency department. * Fevers could be secondary to CLL, COVID-19 pneumonia, bacterial infection including pneumonia or bacteremia * Requiring 2 L nasal cannula secondary to hypoxemia. Anemia * Hemoglobin was 7.9 * Discharge from emergency department on May 22 it was 7.2. Hyponatremia * Likely either from increased oral intake versus lung infection and SIADH. * Sodium [address] scan with cardiomegaly * Echocardiogram from September 2019 showed a normal ejection fraction of 55 to 60%. Normal LV and RV function. * Given Lasix in the emergency department. * Requiring 2 L nasal cannula secondary to hypoxemia. 06/04/2021 61-year-old male with CLL and recent COVID-19 pneumonia has worsening hypoxemia and fatigue. His fevers are improved over the last 24 hours. He is currently on vancomycin, cefepime, and and Levaquin. Will stop Levaquin today with the procalcitonin of 0.59. Will start him on doxycycline to cover for atypical bacteria. Oxygen requirements are up to 4 L overnight. He is down to 3 L this afternoon. Blood cultures are pending. Given Lasix 40 mg yesterday and will repeat that today. He did have cardiomegaly and small pleural effusions on CT scan. Continue to monitor his labs closely. Likely colic patient has continued COVID-19 complications from pneumonia as seen on CT scan. This complicated with his CLL makes his prognosis guarded. We will continue to titrate O2, a djust antibiotics per blood cultures, follow labs. Plan * Admit to medical floor * Waiting for IgG level, SARS-CoV-2 IgG, blood cultures * Titrate oxygen to keep SPO2 above 90%. * Continue cefepime, and vancomycin * Stop Levaquin * Lasix 40 mg IV x1 * Tylenol for fevers * Repeat echocardiogram in the morning * Follow CBC, CMP * Continue prednisone 100 mg daily * VTE prophylaxis with Lovenox * CODE STATUS: Full code
[2021-06-04] MEDS: Mupirocin Oint 22 GM Tube TOP SCH ×2 (15:25→20:47)
[2021-06-04] MEDS: Famotidine 20 MG Tab PO SCH (20:41)
[2021-06-04] MEDS: Doxycycline 100 MG in Sodium Chloride 0.9% 100 ML IV SCH (20:47)
[2021-06-04] MEDS ORDERED: Doxycycline Susp 25 MG/5 ML 60 ML Bottle PO SCH (21:00)
[2021-06-04] MEDS ORDERED: guaiFENesin/Dextromethorphan 100-10 MG/5 ML Soln 5 ML Cup PO PRN (22:36)
[2021-06-05] MEDS ORDERED: Codeine/guaiFENesin 10-100 MG/5 ML Syrup 5 ML Cup PO PRN (01:33)
[2021-06-05] MEDS ORDERED: Furosemide 40 MG/4 ML VIAL IVPUSH ONE ×2 (01:33→10:30)
[2021-06-05] MEDS ORDERED: Benzonatate 100 MG Cap PO PRN (01:35)
[2021-06-05] MEDS: Cefepime 2 GM in Sodium Chloride 0.9% 50 ML IV SCH ×2 (02:10→10:10)
[2021-06-05] MEDS: Acetaminophen 325 MG Tab PO PRN ×2 (06:12→12:45)
[2021-06-05] MEDS: predniSONE 20 MG Tab PO SCH (08:18)
[2021-06-05] MEDS: Zinc Sulfate 220 MG Cap PO SCH (08:18)
[2021-06-05] MEDS: Enoxaparin 40 MG/0.4 ML Syringe SUBCUT SCH (08:19)
[2021-06-05] MEDS: lamoTRIgine 100 MG Tab PO SCH (08:19)
[2021-06-05] MEDS: Mupirocin Oint 22 GM Tube TOP SCH (08:19)
[2021-06-05] MEDS: Famotidine 20 MG Tab PO SCH (08:19)
[2021-06-05] MEDS: Cholecalciferol (Vitamin D3) 5,000 UNIT Cap PO SCH (08:19)
[2021-06-05] MEDS: Doxycycline 100 MG in Sodium Chloride 0.9% 100 ML IV SCH (08:31)
--- NOTE | 2021-06-05 10:51 | CR ---
Chest: Portable view of the chest was obtained. Comparison: Prior chest CT and chest x-ray performed on 06/02/21. Worsening density is seen within both sides of the chest from prior chest imaging. Heart size and mediastinum are normal. Bony structures show nothing acute. Impression: 1. Worsening increased density within both sides of the chest from prior chest imaging most likely representing worsening COVID -19 pneumonia. 2. Portable chest x-ray is otherwise within normal limits. Diagnostic code #3
[2021-06-05] MEDS ORDERED: Sodium Chloride/Potassium Chloride Tab PO SCH (11:00)
[2021-06-05] MEDS: Albuterol/Ipratropium 3.0-0.5 MG/3 ML Neb Soln NEB PRN (13:32)
--- NOTE | 2021-06-05 13:35 | PCM.DCSUM1 ---
Discharge Summary - Hospital Course HPI Initial Comments: - History of Present Illness Initial Comments - Free Text/Narative: 61-year-old male with history of CLL presents to the emergency department with increasing weakness, fatigue, and low oxygen saturations. Patient first developed symptoms of COVID-19 around May 09 and tested positive. He was seen in the emergency department on the and he had a hemoglobin of 4.2. Unfortunately, there were no beds available in [facility] or here and he was treated in the emergency department for anemia. He was given prednisone 100 mg and sent home on this after receiving 4 units of packed red blood cells. Patient returns yesterday with the above complaints. In the emergency department patient was found to be hypoxemic with oxygen saturations in the 80s requiring 2 L nasal cannula. He continues to have fevers and in the emergency department had a fever of 102.7. He was kept in the emergency department overnight because we do not have beds. He was given a dose of Lasix after a CTA of the chest showed mild pleural effusions bilaterally, cardiomegaly, and patchy areas of increased density throughout the lung santiago radiographically consistent with COVID-19 pneumonia. No pulmonary embolism noted but it was a suboptimal study for pulmonary embolism. White count was elevated at 40,000 and hemoglobin was down to 7.9 which is actually up compared to when he was discharged. He was hyponatremic at 129 and renal function was normal with a creatinine of 1.2 and estimated GFR greater than 60. BUN was 22. Lactic acid was 1.5. CRP 6.7. He was given Rocephin and doxycycline in the emergency department for treatment of community acquired pneumonia. Assessment/Plan Comment:: 61-year-old male with CLL and recent COVID-19 pneumonia is admitted with hypoxemia and worsening fatigue. CLL COVID-19 pneumonia versus community-acquired pneumonia Hypoxemia * Patient was in the emergency department for over 24 hours on May 22 secondary to anemia and COVID-19. * Patient diagnosed with COVID-19 on May 09 * It is possible the patient has long Covid and his fevers are secondary to continued viral activity. * Patient also may have a secondary bacterial pneumonia. * I spoke with Dr. Garzon, infectious disease specialist in [facility] who recommended starting antibiotics which includes vancomycin, cefepime, and levofloxacin until procalcitonin and blood cultures return. * I spoke with the oncologist director operations at [facility] in [place], Dr. Frias, who stated the white count could be elevated both by the CLL and steroids. She had no real recommendations on treatment other than continuing with steroids. * Patient did have a fever of 102 in the emergency department. * Fevers could be secondary to CLL, COVID-19 pneumonia, bacterial infection including pneumonia or bacteremia * Requiring 2 L nasal cannula secondary to hypoxemia. Anemia * Hemoglobin was 7.9 * Discharge from emergency department on May 22 it was 7.2. Hyponatremia * Likely either from increased oral intake versus lung infection and SIADH. * Sodium [address] scan with cardiomegaly * Echocardiogram from September 2019 showed a normal ejection fraction of 55 to 60%. Normal LV and RV function. * Given Lasix in the emergency department. * Requiring 2 L nasal cannula secondary to hypoxemia. Plan * Admit to medical floor * Get procalcitonin, IgG level, SARS-CoV-2 IgG * Titrate oxygen to keep SPO2 above 90%. * Start vancomycin, cefepime, and vancomycin * Follow blood cultures * Lasix 40 mg IV x1 * Tylenol for fevers * Follow CBC, CMP * Continue prednisone 100 mg daily * VTE prophylaxis with Lovenox * CODE STATUS: Full code - Mortality Measure Prognosis:: Good Diagnosis: Stroke: No - Discharge Data Discharge Date: 06/05/21 Discharge Disposition: DC/Tfer to Acute Hospital 02 Condition: Stable - Referral to Home Health Primary Care Physician: Aron Sweet MD - Discharge Diagnosis/Problem(s) (1) Hypoxemia SNOMED Code(s): 722823374 ICD Code: R09.02 - HYPOXEMIA Status: Acute Current Visit: Yes (2) Pneumonia SNOMED Code(s): 271038432 ICD Code: J18.9 - PNEUMONIA, UNSPECIFIED ORGANISM Status: Acute Current Visit: Yes (3) Anemia SNOMED Code(s): 112913033 ICD Code: D64.9 - ANEMIA, UNSPECIFIED Status: Acute Current Visit: No (4) CLL (chronic lymphocytic leukemia) SNOMED Code(s): 13345376 ICD Code: C91.10 - CHRONIC LYMPHOCYTIC LEUK OF B-CELL TYPE NOT ACHIEVE REMIS Status: Acute Current Visit: No (5) Hyponatremia SNOMED Code(s): 17304459 ICD Code: E87.1 - HYPO-OSMOLALITY AND HYPONATREMIA Status: Acute Current Visit: Yes - Patient Summary/Data Hospital Course: 06/04/2021 Subjective Update: Patient states he is not much different than yesterday. He has been essentially afebrile since yesterday around 1300. Early this morning, around 0600 hrs. he did have a temperature of 100.6. White count did go up to 43,000 with 72% lymphocytes and 4% atypical lymphs.. Procalcitonin was 0.59. This morning's CBC did show some toxic granulation. A/P 61-year-old male with CLL and recent COVID-19 pneumonia has worsening hypoxemia and fatigue. His fevers are improved over the last 24 hours. He is currently on vancomycin, cefepime, and and Levaquin. Will stop Levaquin today with the procalcitonin of 0.59. Will start him on doxycycline to cover for atypical bacteria. Oxygen requirements are up to 4 L overnight. He is down to 3 L this afternoon. Blood cultures are pending. Given Lasix 40 mg yesterday and will repeat that today. He did have cardiomegaly and small pleural effusions on CT scan. Continue to monitor his labs closely. Likely colic patient has continued COVID-19 complications from pneumonia as seen on CT scan. This complicated with his CLL makes his prognosis guarded. We will continue to titrate O2, adjust antibiotics per blood cultures, follow labs. 06/05/2021 Patient complains of worsening fevers and fatigue overnight. No significant shortness of breath. He had temperatures above 102 this morning. Patient's white count continues to climb at 44,000. Hemoglobin 7.8, platelets 345. Sodium is 128 and potassium 3.8. BUN is 21 and creatinine is 1.3. CRP is 8.5. Chest x-ray showed worsening COVID pneumonia. Oxygen saturations continued to worsen and he is currently on 5 L nasal cannula. Patient has been getting Lasix 40 mg twice daily for diuresis. Echocardiogram this mornin. Left ventricular ejection fraction, by visual estimation, is 60 to 65%. 2. Possible hypokinesis of the distal inferior lateral segment visualized in apical 3 chamber view, however segment appears normal in short axis. 3. No aortic valve stenosis. 4. No evidence of mitral valve regurgitation. 5. Trace tricuspid valve regurgitation. 6. The right ventricular systolic pressure is unable to be determined. 7. Trivial pericardial effusion. Patient continues on vancomycin, cefepime, and doxycycline for antibiotic coverage. He is on prednisone 100 mg daily. I spoke with Dr. Sanchez in oncology. Also spoke with pulmonology. Dr. Bowser accepted patient for transfer. - Discharge Plan *PRESCRIPTION DRUG MONITORING PROGRAM REVIEWED*: Not Applicable *COPY OF PRESCRIPTION DRUG MONITORING REPORT IN PATIENT [facility]: Not Applicable Home Medications: Home Meds lamoTRIgine [Lamotrigine] 200 mg PO BID 05/27/21 [History] Acetaminophen [Tylenol Extra Strength] 1,000 mg PO TID PRN 06/03/21 [History] predniSONE 100 mg PO WITHBREAKFAST 06/03/21 [History] Oxygen Therapy Mode: Nasal Cannula Oxygen Flow Rate (L/min): 5 Patient Handouts: Sepsis, Diagnosis, Adult, Community-Acquired Pneumonia, Adult, [id number] Forms: ED Department Discharge Referrals: Aron Sweet MD [Primary Care Provider] - - Discharge Summary/Plan Comment DC Time >30 min.: Yes Total # of Minutes for Discharge Time: 55 Total time spent includes seeing the patient, doing discharge paperwork, and arranging care. - General Info Date of Service: 06/05/21 Admission Dx/Problem (Free Text: Admission Diagnosis/Problem Admission Diagnosis/Problem Pneumonia Subjective Update: Patient continues to feel fatigued. He continues with fevers overnight and had difficulty sleeping. Functional Status: Reports: Pain Controlled - Review of Systems General: Reports: Fever, Fatigue, Chills HEENT: Reports: No Symptoms Pulmonary: Reports: Shortness of Breath Cardiovascular: Reports: No Symptoms Gastrointestinal: Reports: No Symptoms Skin: Reports: No Symptoms Neurological: Reports: No Symptoms Psychiatric: Reports: No Symptoms - Patient Data Vitals - Most Recent: Last Vital Signs Temp 101.5 F H 06/05/21 12:45 Pulse 67 06/05/21 12:36 Resp 18 06/05/21 12:36 BP 107/51 L 06/05/21 12:35 Pulse Ox 89 L 06/05/21 12:36 Weight - Most Recent: 231 lb 4.8 oz I&O - Last 24 hours: Intake & Output 06/04/21 06/05/21 06/05/21 22:59 06:59 14:59 Intake Total 1600 1200 240 Output Total 500 1200 Balance 1100 0 240 Lab Results - Last 24 hrs: Laboratory Results - last 24 hr 06/02/21 06/04/21 06/05/21 Range/Units 16:10 22:12 08:35 WBC 44.36 H (4.23-9.07) K/mm3 RBC 2.50 L (4.63-6.08) M/mm3 Hgb 7.8 L (13.7-17.5) gm/dl Hct 24.9 L (40.1-51.0) % MCV 99.6 H (79.0-92.2) fl MCH 31.2 (25.7-32.2) pg MCHC 31.3 L (32.2-35.5) g/dl RDW Std Deviation 66.0 H (35.1-43.9) fL Plt Count 349 H (163-337) K/mm3 MPV 9.0 L (9.4-12.3) fl Neut % (Auto) Cancelled Lymph % (Auto) Cancelled [place] % (Auto) Cancelled Eos % (Auto) Cancelled Baso % (Auto) Cancelled Neut # (Auto) Cancelled Lymph # (Auto) Cancelled [place] # (Auto) Cancelled Eos # (Auto) Cancelled Baso # (Auto) Cancelled Neutrophils % (Manual) 18 L (40-60) % Band Neutrophils % 5 (0-10) % Lymphocytes % (Manual) 74 H (20-40) % Atypical Lymphs % 0 % Monocytes % (Manual) 3 (2-10) % Eosinophils % (Manual) 0 L (0.8-7.0) % Basophils % (Manual) 0 L (0.2-1.2) Manual Slide Review Cancelled Toxic Granulation 1+ slight Platelet Estimate Adequate Plt Morphology Comment Normal Hypochromasia 1+ slight Poikilocytosis 1+ slight Anisocytosis 3+ marke Target Cells 1+ slight RBC Morph Comment Not Reportable Sodium (136-145) mEq/L Potassium (3.5-5.1) mEq/L Chloride (98-107) mEq/L Carbon Dioxide (21-32) mEq/L Anion Gap (5-15) BUN (7-18) mg/dL Creatinine (0.7-1.3) mg/dL Est Cr Clr Drug Dosing mL/min Estimated GFR (MDRD) (>60) mL/min BUN/Creatinine Ratio (14-18) Glucose (70-99) mg/dL Calcium (8.5-10.1) mg/dL Phosphorus (2.6-4.7) mg/dL Magnesium (1.8-2.4) mg/dL Total Bilirubin (0.2-1.0) mg/dL AST (15-37) U/L ALT (16-63) U/L Alkaline Phosphatase (46-116) U/L C-Reactive Protein (<1.0) mg/dL Total Protein (6.4-8.2) g/dl Albumin (3.4-5.0) g/dl Globulin gm/dL Albumin/Globulin Ratio (1-2) Vancomycin Trough 8.6 L (10.0-20.0) IgG 378 L (650-1600) mg/dL 06/05/21 Range/Units 08:35 WBC (4.23-9.07) K/mm3 RBC (4.63-6.08) M/mm3 Hgb (13.7-17.5) gm/dl Hct (40.1-51.0) % MCV (79.0-92.2) fl MCH (25.7-32.2) pg MCHC (32.2-35.5) g/dl RDW Std Deviation (35.1-43.9) fL Plt Count (163-337) K/mm3 MPV (9.4-12.3) fl Neut % (Auto) Lymph % (Auto) [place] % (Auto) Eos % (Auto) Baso % (Auto) Neut # (Auto) Lymph # (Auto) [place] # (Auto) Eos # (Auto) Baso # (Auto) Neutrophils % (Manual) (40-60) % Band Neutrophils % (0-10) % Lymphocytes % (Manual) (20-40) % Atypical Lymphs % % Monocytes % (Manual) (2-10) % Eosinophils % (Manual) (0.8-7.0) % Basophils % (Manual) (0.2-1.2) Manual Slide Review Toxic Granulation Platelet Estimate Plt Morphology Comment Hypochromasia Poikilocytosis Anisocytosis Target Cells RBC Morph Comment Sodium 128 L (136-145) mEq/L Potassium 3.8 (3.5-5.1) mEq/L Chloride 92 L (98-107) mEq/L Carbon Dioxide 26 (21-32) mEq/L Anion Gap 13.8 (5-15) BUN 21 H (7-18) mg/dL Creatinine 1.3 (0.7-1.3) mg/dL Est Cr Clr Drug Dosing 62.75 mL/min Estimated GFR (MDRD) 56 (>60) mL/min BUN/Creatinine Ratio 16.2 (14-18) Glucose 117 H (70-99) mg/dL Calcium 7.9 L (8.5-10.1) mg/dL Phosphorus 2.9 (2.6-4.7) mg/dL Magnesium 2.1 (1.8-2.4) mg/dL Total Bilirubin 1.7 H (0.2-1.0) mg/dL AST 44 H (15-37) U/L ALT 35 (16-63) U/L Alkaline Phosphatase 103 (46-116) U/L C-Reactive Protein 8.5 H* (<1.0) mg/dL Total Protein 5.2 L (6.4-8.2) g/dl Albumin 2.8 L (3.4-5.0) g/dl Globulin 2.4 gm/dL Albumin/Globulin Ratio 1.2 (1-2) Vancomycin Trough (10.0-20.0) IgG (650-1600) mg/dL FARHAT Results - Last 24 hrs: Microbiology 06/02/21 21:42 Blood Culture - Preliminary Blood - Venous - Lab Draw 06/02/21 21:32 Blood Culture - Preliminary Blood - Venous 06/02/21 16:16 Blood Culture - Preliminary Blood - Venous - Lab Draw 06/02/21 16:10 Blood Culture - Preliminary Blood - Venous Med Orders - Current: Current Medications Acetaminophen (Acetaminophen 325 Mg Tab) 975 mg PO Q6H PRN PRN Reason: Pain (Mild 1-3)/fever Last Admin: 06/05/21 12:45 Dose: 975 mg Documented by: Albuterol (Albuterol 0.083% 2.5 Mg/3 Ml Neb Soln) 2.5 mg NEB Q2H PRN PRN Reason: Shortness Of Breath/wheezing Albuterol/Ipratropium (Albuterol/Ipratropium 3.0-0.5 Mg/3 Ml Neb Soln) 3 ml NEB Q4H PRN PRN Reason: Shortness Of Breath/wheezing Last Admin: 06/05/21 13:32 Dose: 3 ml Documented by: Benzonatate (Benzonatate 100 Mg Cap) 200 mg PO TID PRN PRN Reason: Cough Last Admin: 06/05/21 01:49 Dose: 200 mg Documented by: Cholecalciferol (Cholecalciferol (Vitamin D3) 5,000 Unit Cap) 5,000 unit PO DAILY [facility] Last Admin: 06/05/21 08:19 Dose: 5,000 unit Documented by: Enoxaparin Sodium (Enoxaparin 40 Mg/0.4 Ml Syringe) 40 mg SUBCUT DAILY [facility] Last Admin: 06/05/21 08:19 Dose: 40 mg Documented by: Famotidine (Famotidine 20 Mg Tab) 20 mg PO BID [facility] Last Admin: 06/05/21 08:19 Dose: 20 mg Documented by: Guaifenesin/Codeine Phosphate (Codeine/Guaifenesin 10-100 Mg/5 Ml Syrup 5 Ml Cup) 5 ml PO Q4H PRN PRN Reason: Cough Last Admin: 06/05/21 06:38 Dose: 5 ml Documented by: Cefepime HCl 2 gm/ Sodium (Chloride) 50 mls @ 100 mls/hr IV Q8H [facility] Last Admin: 06/05/21 10:10 Dose: 100 mls/hr Documented by: Doxycycline Hyclate 100 mg/ (Sodium Chloride) 100 mls @ 100 mls/hr IV Q12HR [facility] Last Admin: 06/05/21 08:31 Dose: 100 mls/hr Documented by: Vancomycin HCl 1 gm/ Sodium (Chloride) 250 mls @ 250 mls/hr IV Q8H [facility] Last Admin: 06/05/21 08:31 Dose: 250 mls/hr Documented by: Lamotrigine (Lamotrigine 100 Mg Tab) 200 mg PO BID [facility] Last Admin: 06/05/21 08:19 Dose: 200 mg Documented by: Mupirocin (Mupirocin Oint 22 Gm Tube) 0 gm TOP TID [facility] Last Admin: 06/05/21 08:19 Dose: 1 applic Documented by: Ondansetron HCl (Ondansetron 4 Mg/2 Ml Sdv) 4 mg IV Q6H PRN PRN Reason: Nausea/Vomiting Oral Electrolytes (Sodium Chloride/Potassium Chloride Tab) 2 each PO TIDAC [facility] Last Admin: 06/05/21 11:19 Dose: 2 each Documented by: Oxycodone HCl (Oxycodone 5 Mg Tab) 5 mg PO Q4H PRN PRN Reason: Pain (moderate 4-6) Prednisone (Prednisone 20 Mg Tab) 100 mg PO WITHBREAKFAST [facility] Last Admin: 06/05/21 08:18 Dose: 100 mg Documented by: Sodium Chloride (Sodium Chloride 0.9% 10 Ml Syringe) 10 ml FLUSH ASDIRECTED PRN PRN Reason: Keep Vein Open Last Admin: 06/02/21 16:15 Dose: 10 ml Documented by: Vancomycin HCl (Pharmacy To Dose - Vancomycin) 1 dose .XX ASDIRECTED PRN PRN Reason: RX TO DOSE VANCO Zinc Sulfate (Zinc Sulfate 220 Mg Cap) 220 mg PO DAILY [facility] Last Admin: 06/05/21 08:18 Dose: 220 mg Documented by: Discontinued Medications Acetaminophen (Acetaminophen 325 Mg Tab) 975 mg PO NOW ONE Stop: 06/02/21 20:12 Last Admin: 06/02/21 20:23 Dose: 975 mg Documented by: Acetaminophen (Acetaminophen 325 Mg Tab) 975 mg PO NOW ONE Stop: 06/03/21 05:40 Last Admin: 06/03/21 05:44 Dose: 975 mg Documented by: Albuterol (Albuterol 6.7 Gm Inhaler) 0 gm INH ONETIME ONE Stop: 06/02/21 17:53 Last Admin: 06/02/21 18:54 Dose: 2 each Documented by: Doxycycline Monohydrate (Doxycycline Susp 25 Mg/5 Ml 60 Ml Bottle) 100 mg PO Q12HR [facility] Furosemide (Furosemide 40 Mg/4 Ml Vial) 40 mg IVPUSH NOW ONE Stop: 06/03/21 08:55 Last Admin: 06/03/21 09:20 Dose: 40 mg Documented by: Furosemide (Furosemide 40 Mg/4 Ml Vial) 40 mg IVPUSH NOW ONE Stop: 06/04/21 11:15 Last Admin: 06/04/21 12:24 Dose: 40 mg Documented by: Furosemide (Furosemide 40 Mg/4 Ml Vial) 40 mg IVPUSH NOW ONE Stop: 06/05/21 01:34 Last Admin: 06/05/21 01:48 Dose: 40 mg Documented by: Furosemide (Furosemide 40 Mg/4 Ml Vial) 40 mg IVPUSH NOW ONE Stop: 06/05/21 10:31 Last Admin: 06/05/21 11:19 Dose: 40 mg Documented by: Guaifenesin/Dextromethorphan (Guaifenesin/Dextromethorphan 100-10 Mg/5 Ml Soln 5 Ml Cup) 10 ml PO QID PRN PRN Reason: Cough Sodium Chloride (Normal Saline) 500 mls @ 999 mls/hr IV .BOLUS ONE Stop: 06/02/21 18:43 Last Admin: 06/02/21 18:22 Dose: 999 mls/hr Documented by: Doxycycline Hyclate 100 mg/ (Sodium Chloride) 100 mls @ 100 mls/hr IV ONETIME ONE Stop: 06/02/21 21:55 Last Admin: 06/02/21 22:25 Dose: 100 mls/hr Documented by: Ceftriaxone Sodium 1 gm/ (Sodium Chloride) 100 mls @ 200 mls/hr IV ONETIME ONE Stop: 06/02/21 21:25 Last Admin: 06/02/21 22:25 Dose: 200 mls/hr Documented by: Sodium Chloride (Normal Saline) 100 mls @ 120 mls/min IV ASDIRECTED [facility] Last Admin: 06/02/21 21:14 Dose: 120 mls/min Documented by: Levofloxacin/Dextrose 750 mg/ (Premix) 150 mls @ 100 mls/hr IV Q24H [facility] Last Admin: 06/03/21 10:40 Dose: 100 mls/hr Documented by: Vancomycin HCl 2 gm/ Sodium (Chloride) 500 mls @ 250 mls/hr IV ONETIME ONE Stop: 06/03/21 12:29 Last Admin: 06/03/21 11:33 Dose: 250 mls/hr Documented by: Vancomycin HCl 1 gm/Vancomycin HCl 250 mg/ Sodium Chloride 250 mls @ 166.667 mls/hr IV Q12H [facility] Last Admin: 06/04/21 22:30 Dose: Not Given Documented by: Vancomycin HCl 1 gm/ Sodium (Chloride) 250 mls @ 250 mls/hr IV Q8H [facility] Last Admin: 06/05/21 00:46 Dose: 250 mls/hr Documented by: Iopamidol (Iopamidol 755 Mg/Ml 50 Ml Bottle) 50 ml IVPUSH ONETIME ONE Stop: 06/02/21 21:13 Last Admin: 06/02/21 21:13 Dose: 50 ml Documented by: Iopamidol (Iopamidol 755 Mg/Ml 100 Ml Bottle) 200 ml IVPUSH ONETIME ONE Stop: 06/02/21 21:13 Last Admin: 06/02/21 21:13 Dose: 200 ml Documented by: Magnesium Hydroxide (Magnesium Hydroxide 400 Mg/5 Ml Susp 30 Ml Cup) 30 ml PO ONETIME ONE Stop: 06/04/21 07:01 Last Admin: 06/04/21 07:07 Dose: 30 ml Documented by: Prednisone (Prednisone 20 Mg Tab) 100 mg PO ONETIME ONE Stop: 06/03/21 10:16 Last Admin: 06/03/21 10:27 Dose: 100 mg Documented by: - Exam Quality Assessment: Reports: Supplemental Oxygen General: Reports: Alert, Oriented HEENT: Reports: Pupils Equal, Mucous Membr. Moist/[place] Neck: Reports: Supple Lungs: Reports: Normal Respiratory Effort, Crackles (Mild bibasilar) Cardiovascular: Reports: Regular Rate, Regular Rhythm GI/Abdominal Exam: Normal Bowel Sounds, Soft, Non-Tender, No Distention Extremities: Normal Inspection, Normal Range of Motion, Non-Tender, Normal Capillary Refill, Pedal Edema (1+ edema) Skin: Reports: Warm, Dry, Intact Psy/Mental Status: Reports: Alert, Normal Affect, Normal Mood, Depressed
== END 2021-06-05 15:34 | DRG 137 ==
LOC: JD.ED 14:53 → JD.MS 06-03 06:34
PROVIDERS: ADMIT Family Medicine; ATTEND Family Medicine
DX: U07.1 COVID-19 (principal); J18.9 Pneumonia, unspecified organism; C91.10 Chronic lymphocytic leukemia of B-cell type not having achieved remission; R09.02 Hypoxemia; J12.82 Pneumonia due to coronavirus disease 2019; E22.2 Syndrome of inappropriate secretion of antidiuretic hormone; J90 Pleural effusion, not elsewhere classified; F32.A Depression, unspecified; D64.9 Anemia, unspecified; F41.9 Anxiety disorder, unspecified; Z86.16 Personal history of COVID-19; Z90.89 Acquired absence of other organs; Z98.890 Other specified postprocedural states
CPT/HCPCS: 36415; 71045; 71045-26; 71275; 71275-26; 80053; 80202; 81001; 82306; 82784; 83605; 83735; 83880; 84100; 84145; 84443; 84484; 85007; 85027; 85379; 86140; 86769; 87040; 93005; 93306; 94640; 94762; 96365; 96368; 99285-25; A9270-GY; J0692; J0696; J1650; J1940; J1956; J3370; J3490; J7030; J7040; J7050; J7512; J7620-GY; Q9967

== ENCOUNTER 2021-06-22 19:49 | Emergency (ER) | payer BC ==
[2021-06-22] MEDS ORDERED: Sodium Chloride 0.9% 10 ML Syringe FLUSH PRN (20:26)
--- NOTE | 2021-06-22 20:32 | EDM.PDOC ---
<Evan Ortiz - Last Filed: 06/23/21 00:51> ED HPI GENERAL MEDICAL PROBLEM - General Chief Complaint: Abdominal Pain Stated Complaint: HERNIA PAIN LT ABD Time Seen by Provider: 06/22/21 20:04 - Related Data Allergies Allergy/AdvReac Type Severity Reaction Status Date / Time No Known Allergies Allergy Verified 06/22/21 20:14 Home Meds: Home Meds Aspirin [Aspirin EC] 81 mg PO ASDIRECTED 06/22/21 [History] Budesonide [Pulmicort] 1 dose INH ASDIRECTED 06/22/21 [History] Furosemide 40 mg PO ASDIRECTED 06/22/21 [History] Voriconazole 200 mg PO ASDIRECTED 06/22/21 [History] dilTIAZem HCL [Dilt-Xr] 1 tab PO ASDIRECTED 06/22/21 [History] Course - Re-Assessments/Exams Free Text/Narrative Re-Assessment/Exam: 06/22/21 23:32 Case received from Alley Navarro NP, for change of shift. I agree with her history and physical examination as documented. CT of the abdomen and pelvis with oral and IV contrast is read by [facility] as: Patchy areas of parenchymal opacification in both lung bases. Consider atelectasis and/or pneumonia. 2. Borderline cardiomegaly with a trace of pericardial effusion. 3. Partial small bowel obstruction with appears to transition in the right mid abdomen. [sic] 4. Left anterior wall hernia containing only mesentery and not responsible for the partial obstruction. 5. Scattered diverticula throughout the colon. Mildly thickened wall of the sigmoid is present, exact etiology indeterminate. If clinically indicated follow-up may be of value. 06/22/21 23:50 Test results discussed with the patient and his at length. The patient states that after he returned from CT scan, he started to feel better, the hernia in his left upper quadrant is no longer bulging, and he has passed gas. Because the CT scan indicates a partial small bowel obstruction, I have to recommend admission to the hospital, and, unfortunately, there are no beds available at this facility. I have to recommend transfer to [place], of which she is reluctant. The plan is for the patient to remain here in the ED for about an hour, and if he continues to feel well, we can discharge him home. If his symptoms were to return after discharge from the hospital, it would be best if he were to go directly to [facility]. Similarly, if his symptoms recur before an hour from now, we will make arrangements for him to be transferred to [facility]. 06/23/21 00:51 The patient is still feeling well, so we will discharge him home with the advice to eat a soft diet for the next few days. He is to either return to the ED or go directly to [place] if his symptoms return. Departure - Departure Time of Disposition: 00:52 Disposition: Home, Self-Care 01 Condition: Good Clinical Impression: Partial small bowel obstruction - Discharge Information *PRESCRIPTION DRUG MONITORING PROGRAM REVIEWED*: Not Applicable *COPY OF PRESCRIPTION DRUG MONITORING REPORT IN PATIENT [facility]: Not Applicable Instructions: Bowel Obstruction Referrals: Aron Sweet MD [Primary Care Provider] - Forms: ED Department Discharge Additional Instructions: You were seen in the emergency room after developing abdominal pain with bulging at your hernia site. Work-up in the ER included numerous blood tests, a swab for the SARS-CoV-2 virus, and a CT of your abdomen and pelvis with oral and IV contrast. The CT scan found you to have a partial small bowel obstruction, however, your symptoms significantly improved after you return from CT scan. Going forward, we recommend that you eat a soft diet for the next few days, and stay active. If your symptoms return, you may either return to this ER, or go directly to [facility]. If any other problems, do not hesitate to return to the ER. <Alley Navarro - Last Filed: 06/27/21 19:11> ED HPI GENERAL MEDICAL PROBLEM - General Source of Information: Reports: Patient History Limitations: Reports: No Limitations - History of Present Illness INITIAL COMMENTS - FREE TEXT/NARRATIVE: 61-year-old male presents the emergency department today with complaints of a abdominal hernia that has gotten significantly worse today. Patient does have an extensive history which includes history of bowel resection with ostomy placement and then reversal of ostomy placement with subsequent abdominal hernia. Patient did speak with Dr. Horton, neurosurgeon, back in November 2020 and discussed hernia repair. 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 Patient was discharged from the hospital on June 13, 2021 on oxygen. Also had a new diagnosis on most recent hospitalization of atrial fibrillation and is currently taking Cardizem and a baby aspirin daily. Patient states he had a follow-up appointment this morning with his primary care provider, Dr. Sweet. This afternoon, patient states that his hernia suddenly worsened and is now protruding from his abdomen. He also notes diarrhea stools 2 days ago and a diarrhea stool this morning, however states he feels constipated at this time. States that umbilical hernia is painful with palpation. He denies any recent fever, chills, nausea or vomiting. He denies any other complaints. Abdominal Pain Score (Numeric/FACES): 2 Past Medical History HEENT History: Reports: Impaired Vision Other HEENT History: glasses Respiratory History: Reports: Sleep Apnea Other Respiratory History: COVID Gastrointestinal History: Reports: Diverticulosis, Inflammatory Bowel Disease Other Gastrointestinal History: emergent bowel resection in 2003 due to diverticulitis, ulcerative colitis Genitourinary History: Reports: Other (See Below) Other Genitourinary History: frequency of urination Musculoskeletal History: Reports: Fracture Neurological History: Reports: Concussion, Seizure Psychiatric History: Reports: Anxiety, Depression Hematologic History: Reports: Anemia, Blood Transfusion(s), Other (See Below) Other Hematologic History: CLL Immunologic History: Reports: Immunosuppression, Other (See Below) Other Immunologic History: hx of CLL Oncologic (Cancer) History: Reports: Basal Cell Carcinoma, Leukemia, Other (See Below) Other Oncologic History: CLL stage 1 Dermatologic History: Reports: Other (See Below) Other Dermatologic History: basal cell CA - Infectious Disease History Infectious Disease History: Reports: Chicken Pox, Mumps, Novel Coronavirus - Past Surgical History HEENT Surgical History: Reports: Oral Surgery, Tonsillectomy Other HEENT Surgeries/Procedures: molars bilaterally removed GI Surgical History: Reports: Colon, Colonoscopy Musculoskeletal Surgical History: Reports: Shoulder Surgery, Other (See Below) Other Musculoskeletal Surgeries/Procedures:: right shoulder, august 2020, rotator cuff repair Social & Family History - Family History Cardiac: Reports: Afib, [place] Other Cardiac Family History: father [place], mother afib Endocrine/Metabolic: Reports: Diabetes, type II, Other (See Below) Other Endocrine/Metabolic Family History: father - Tobacco Use Tobacco Use Status *Q: Never Tobacco User Second Hand Smoke Exposure: No - Caffeine Use Caffeine Use: Reports: Coffee Other Caffeine Use: 1 cup per day - Recreational Drug Use Recreational Drug Use: No - Living Situation & Occupation Living situation: Reports: , with Spouse, with Family (1 son) Occupation: Employed ([employer]) ED ROS GENERAL - Review of Systems Review Of Systems: Comprehensive ROS is negative, except as noted in HPI. ED EXAM, GI/ABD - Physical Exam Exam: See Below Course - Vital Signs Text/Narrative:: As stated above, patient presents with complaints of worsening abdominal hernia. Physical exam reveals an awake alert male in no significant distress. He does have a large hernia located at the 2 o'clock position from the navel on the abdominal wall. Patient states that hernia is painful with palpation. I did try to reduce the hernia and it is not reducible. Patient does have a bowel tones noted in right upper and lower quadrant however bowel tones are hypoactive in left upper and lower quadrant. Will obtain lab studies as well as a CT of the abdomen and pelvis with p.o. and IV contrast. We will have nursing staff place a saline lock. Last Recorded V/S: Last Vital Signs Temp 97.8 F 06/22/21 20:12 Pulse 52 L 06/22/21 20:12 Resp 18 06/22/21 20:12 BP 121/70 06/22/21 20:12 Pulse Ox 97 06/22/21 20:12 - Orders/Labs/Meds Labs: Laboratory Tests 06/22/21 06/22/21 06/22/21 Range/Units 20:45 20:45 22:28 WBC 36.83 H (4.23-9.07) K/mm3 RBC 3.66 L (4.63-6.08) M/mm3 Hgb 12.3 L D (13.7-17.5) gm/dl Hct 38.8 L (40.1-51.0) % MCV 106.0 H D (79.0-92.2) fl MCH 33.6 H (25.7-32.2) pg MCHC 31.7 L (32.2-35.5) g/dl RDW Std Deviation 81.1 H (35.1-43.9) fL Plt Count 305 (163-337) K/mm3 MPV 9.3 L (9.4-12.3) fl Neut % (Auto) 21.7 L (34.0-67.9) % Lymph % (Auto) 74.7 H (21.8-53.1) % [place] % (Auto) 3.1 L (5.3-12.2) % Eos % (Auto) 0 L (0.8-7.0) Baso % (Auto) 0.1 (0.1-1.2) % Neut # (Auto) 7.97 H (1.78-5.38) K/mm3 Lymph # (Auto) 27.52 H (1.32-3.57) K/mm3 [place] # (Auto) 1.16 H (0.30-0.82) K/mm3 Eos # (Auto) 0.01 L (0.04-0.54) K/mm3 Baso # (Auto) 0.04 (0.01-0.08) K/mm3 Manual Slide Review Abnormal smear Sodium 133 L (136-145) mEq/L Potassium 5.5 H D (3.5-5.1) mEq/L Chloride 99 (98-107) mEq/L Carbon Dioxide 22 (21-32) mEq/L Anion Gap 17.5 H (5-15) BUN 29 H (7-18) mg/dL Creatinine 1.1 (0.7-1.3) mg/dL Est Cr Clr Drug Dosing 74.16 mL/min Estimated GFR (MDRD) > 60 (>60) mL/min BUN/Creatinine Ratio 26.4 H (14-18) Glucose 128 H (70-99) mg/dL Calcium 8.7 (8.5-10.1) mg/dL Magnesium 2.4 (1.8-2.4) mg/dL Total Bilirubin 0.8 (0.2-1.0) mg/dL AST 36 (15-37) U/L ALT 68 H (16-63) U/L Alkaline Phosphatase 108 (46-116) U/L C-Reactive Protein <0.2 (<1.0) mg/dL Total Protein 6.6 (6.4-8.2) g/dl Albumin 3.8 (3.4-5.0) g/dl Globulin 2.8 gm/dL Albumin/Globulin Ratio 1.4 (1-2) SARS-CoV-2 RNA (NINO) Negative (NEGATIVE) Meds: Medications Discontinued Medications Generic Name Dose Route Start Last Admin Trade Name Freq PRN Reason Stop Dose Admin Diatrizoate Meglum/Diatrizoate Sod 60 ml 06/22/21 20:35 06/22/21 22:13 Diatrizoate Meglumine/Diatrizoate Sodium 37% 120 Ml Bottle PO 06/22/21 20:36 60 ml ONETIME ONE Administration Sodium Chloride 1,000 mls @ 250 mls/hr 06/22/21 22:00 06/22/21 22:29 Normal Saline IV 250 mls/hr ASDIRECTED FAINA Administration Iopamidol 100 ml 06/22/21 20:35 06/22/21 22:13 Iopamidol 612 Mg/Ml 100 Ml Bottle IVPUSH 06/22/21 20:36 100 ml ONETIME ONE Administration Iopamidol 25 ml 06/22/21 20:35 Iopamidol 612 Mg/Ml 50 Ml Sdv IVPUSH 06/22/21 20:36 ONETIME ONE Sodium Chloride 10 ml 06/22/21 20:26 06/22/21 21:10 Sodium Chloride 0.9% 10 Ml Syringe FLUSH 10 ml ASDIRECTED PRN Administration Keep Vein Open - Re-Assessments/Exams Free Text/Narrative Re-Assessment/Exam: 06/22/21 22:16 Hematology reveals a WBC of 36.83, hemoglobin 12.3, hematocrit 38.8, platelet count 305 Chemistry reveals a sodium of 133, potassium 5.5, anion gap 17.5, BUN 29, creatinine 1.1, GFR greater than 60, glucose 128, magnesium 2.4, AST 36, ALT 68, C-reactive protein less than 0.2 Discussed the lab results with the patient and his . Patient tells me that his white count is chronically elevated due to CLL as well as the patient takes prednisone 20 mg daily. Patient also reveals that he has been started on Lasix, potassium supplementation and a fluid restriction of 50 ounces a day upon his most recent discharge from the hospital. Potassium level at the clinic today was 4.7 when patient reviews his [facility] chart. I have ordered for the patient to receive normal saline at 250 mL's per hour as he does appear slightly dehydrated.
[2021-06-22] MEDS ORDERED: Iopamidol 612 MG/ML 100 ML Bottle IVPUSH ONE (20:35)
[2021-06-22] MEDS ORDERED: Iopamidol 612 MG/ML 50 ML SDV IVPUSH ONE (20:35)
[2021-06-22] MEDS ORDERED: Diatrizoate Meglumine/Diatrizoate Sodium 37% 120 ML Bottle PO ONE (20:35)
[2021-06-22] MEDS ORDERED: Sodium Chloride 0.9% 1,000 ML IV SCH (22:00)
--- NOTE | 2021-06-23 07:39 | CT ---
CT abdomen and pelvis Technique: Multiple axial sections were obtained from above the dome of the diaphragm inferiorly through the pubic symphysis. Intravenous and oral contrast were utilized. Reconstructed coronal and sagittal images were obtained. Delayed images were also obtained through the abdomen and pelvis. Comparison: Prior CT abdomen and pelvis study of 11/12/19. Findings: Patchy areas of increased density are seen within both lung bases. Heart is enlarged. Very minimal pericardial effusion is seen. Liver contains no focal abnormality. Spleen appears within normal limits. Adrenal glands show no nodule. Kidneys show symmetric contrast enhancement. Left kidney shows three cysts. The largest cyst is within the upper pole measuring 3.6 cm. Right kidney shows no abnormality. Delayed images show contrast excretion from both kidneys into the ureters as well as within the bladder. Pancreas shows no discrete abnormality. Gallbladder contains no calcified gallstones. Abdominal aorta shows no aneurysm. Small scattered lymph nodes are seen within the retroperitoneum which are felt to be stable from prior CT exam. No pelvic mass or adenopathy is seen. Prostate gland is enlarged which is stable. Fat-containing hernia is seen within the left side of the abdomen slightly above the iliac crests. This is similar to previous exam. Small fat-containing left inguinal hernia is also noted. Mildly prominent small bowel is noted. Transition point appears to be within the mid to lower abdomen with no etiology seen. Findings raise the possibility of adhesions as an etiology. Bone window settings were reviewed. There is severe disc space narrowing seen at L2-3. Please correlate if this was due to previous surgery or trauma. No acute bony abnormality is a seen. Impression: 1. Dilated small bowel loops suspicious for small bowel obstruction located within the mid to lower abdomen. No etiology is seen and findings are suspicious for change from adhesions. 2. Stable left-sided anterior abdominal hernia. Small left sided inguinal hernia is noted. 3. Patchy areas of increased density are seen within both sides of the chest. Findings are suspicious for pneumonia. Please rule out COVID disease. 4. Other findings as described above which are felt to be chronic. Diagnostic code #3 I agree with preliminary report from [facility], finalized on 06/23/21, 12:18 AM [employer], code 1
== END 2021-06-23 01:04 | disposition home or self-care (01) ==
LOC: JD.ED 19:49
DX: K56.600 Partial intestinal obstruction, unspecified as to cause (principal); Z79.82 Long term (current) use of aspirin; Z20.822 Contact with and (suspected) exposure to COVID-19
CPT/HCPCS: 36415; 74177; 80053; 83735; 85025; 86140; 87635; 99284; J7030; Q9963; Q9967; U0002

== ENCOUNTER 2021-08-04 16:43 | Emergency (ER) | payer BC ==
[2021-08-04] MEDS ORDERED: Sodium Chloride 0.9% 10 ML Syringe FLUSH PRN (17:17)
[2021-08-04] MEDS ORDERED: Folic Acid 1 MG Tab PO ONE (17:30)
[2021-08-04] MEDS ORDERED: Sodium Chloride 0.9% 250 ML IV ONE (17:58)
== END 2021-08-04 22:15 | disposition home or self-care (01) ==
LOC: JD.ED 16:43
DX: C91.10 Chronic lymphocytic leukemia of B-cell type not having achieved remission (principal); D64.9 Anemia, unspecified; I48.91 Unspecified atrial fibrillation; Z79.82 Long term (current) use of aspirin
CPT/HCPCS: 36415; 36430; 86850; 86900; 86901; 86922; 99284; A9270; J7050; P9016

== ENCOUNTER 2021-08-07 12:39 | Emergency (ER) | payer BC ==
[2021-08-07] MEDS ORDERED: Sodium Chloride 0.9% 10 ML Syringe FLUSH PRN (13:00)
== END 2021-08-07 18:04 | disposition home or self-care (01) ==
LOC: JD.ED 12:39
DX: C91.10 Chronic lymphocytic leukemia of B-cell type not having achieved remission (principal); D64.9 Anemia, unspecified; I48.91 Unspecified atrial fibrillation; Z79.82 Long term (current) use of aspirin; Z86.16 Personal history of COVID-19
CPT/HCPCS: 36415; 36430; 80053; 83735; 85007; 85027; 86850; 86900; 86901; 86922; 93005; 99284; P9016

== ENCOUNTER 2021-11-19 19:23 | Emergency (ER) | payer BC ==
[2021-11-19] MEDS ORDERED: Ketorolac 60 MG/2 ML SDV IM ONE (20:28)
== END 2021-11-19 20:45 | disposition home or self-care (01) ==
LOC: JD.ED 19:23
DX: R51.9 Headache, unspecified (principal); I48.91 Unspecified atrial fibrillation; I50.9 Heart failure, unspecified; Z86.16 Personal history of COVID-19; Z79.899 Other long term (current) drug therapy; Z79.82 Long term (current) use of aspirin
CPT/HCPCS: 96372; 99283; J1885; 99282

== ENCOUNTER 2023-12-24 07:46 | Emergency (ER) | payer BC ==
[2023-12-24] MEDS: HYDROmorphone 1 MG/ML Syringe IM ONE (09:09)
[2023-12-24] MEDS: Ketorolac 60 MG/2 ML SDV IM ONE (09:10)
[2023-12-24] MEDS: predniSONE 20 MG Tab PO ONE (10:25)
== END 2023-12-24 10:27 | disposition home or self-care (01) ==
LOC: JD.ED 07:46
DX: M25.552 Pain in left hip (principal); I50.9 Heart failure, unspecified; Z86.16 Personal history of COVID-19; Z79.899 Other long term (current) drug therapy
CPT/HCPCS: 73503; 96372; 99283; J1170; J1885; J7512

== ENCOUNTER 2024-08-17 19:29 | Emergency (ER) | payer BC ==
[2024-08-17 20:46] LABS: BASOPHILS PERCENT AUTO 0.3 % (0.0-1.0); EOSINOPHILS ABSOLUTE AUTO 0.1 K/mm3 (0.0-0.4); EOSINOPHILS PERCENT AUTO 0.8 % (0.0-6.0); HEMATOCRIT 44.7 % (42.0-52.0); HEMOGLOBIN 14.2 gm/dl (14.0-18.0); IMMATURE GRAN ABSOLUTE AUTO 0.05 K/mm3 (0.00-0.05); IMMATURE GRAN PERCENT AUTO 0.3 % (0.0-0.4); LYMPHOCYTES ABSOLUTE AUTO 4.7 K/mm3 (1.0-4.8); LYMPHOCYTES PERCENT AUTO 32.5 % (24.0-44.0); MEAN CORPUSCULAR HEMOGLOBIN 29.9 pg (28.0-32.0); MEAN CORPUSCULAR HGB CONC 31.8 g/dl (32.0-36.0); MEAN CORPUSCULAR VOLUME 94.1 fl (83.0-99.0); MEAN PLATELET VOLUME 9.6 fl (9.4-12.4); MONOCYTES ABSOLUTE AUTO 0.7 K/mm3 (0.0-0.8); MONOCYTES PERCENT AUTO 4.7 % (0.0-8.0); NEUTROPHILS ABSOLUTE AUTO 8.8 K/mm3 (1.8-7.7); NEUTROPHILS PERCENT AUTO 61.4 % (41.0-71.0); PLATELET COUNT,PLT 138 K/mm3 (150-400); RED BLOOD CELL COUNT 4.75 M/mm3 (4.52-5.90); WHITE BLOOD CELL COUNT,WBC 14.38 K/mm3 (3.9-11.3)
[2024-08-17 21:13] LABS: ALBUMIN 3.3 g/dl (3.4-5.0); BILIRUBIN TOTAL 0.7 mg/dL (0.2-1.0); BUN/CREATININE RATIO 22.7 (14-18); CALCIUM 8.6 mg/dL (8.5-10.1); CREATININE 1.1 mg/dL (0.7-1.3); EST CRCL DRUG DOSING (CG) 71.31 mL/min; PROTEIN TOTAL,TP 6.6 g/dl (6.4-8.2)
[2024-08-17] MEDS: metroNIDAZOLE 500 MG Tab PO ONE (21:28)
[2024-08-17] MEDS: Levofloxacin 500 MG Tab PO ONE (21:28)
[2024-08-17 22:15] LABS: APPEARANCE,URINE CLEAR (Clear); BILIRUBIN,URINE NEGATIVE (Negative); COLOR,URINE YELLOW (Yellow); GLUCOSE,URINE NEGATIVE (Negative); KETONES,URINE NEGATIVE (Negative); LEUKOCYTE ESTERASE,URINE NEGATIVE (Negative); NITRITE,URINE NEGATIVE (Negative); OCCULT BLOOD,URINE TRACE-LYSED (Negative); PROTEIN,URINE NEGATIVE (Negative); UROBILINOGEN,URINE 0.2 (0.2-1.0)
[2024-08-17 22:28] LABS: BACTERIA,URINE FEW /hpf (FEW); MUCUS,URINE MODERATE /hpf (FEW); SQUAMOUS EPITHELIAL CELLS,UR 0-5 /hpf (0-5); WBC,URINE 0-5 /hpf (0-5)
== END 2024-08-17 22:15 | disposition home or self-care (01) ==
LOC: JD.ED 19:29
DX: K57.32 Diverticulitis of large intestine without perforation or abscess without bleeding (principal); J06.9 Acute upper respiratory infection, unspecified; I48.91 Unspecified atrial fibrillation; I50.9 Heart failure, unspecified; Z86.16 Personal history of COVID-19; Z79.899 Other long term (current) drug therapy
CPT/HCPCS: 36415; 74176; 80053; 81001; 85025; 85730; 87428; 99284; A9270

== ENCOUNTER 2024-12-28 08:40 | Day surgery (SDC) | payer BC ==
[~2024-12-28 08:40] MED LIST: Sodium Chloride 0.9% 10 ML Syringe FLUSH PRN; Sodium Chloride 0.9% 10 ML Syringe FLUSH SCH
[2024-12-28] MEDS ORDERED: EPINEPHrine 1 MG/ML SDV ONE (08:52)
[2024-12-28] MEDS: Lactated Ringers 1,000 ML IV SCH (09:10)
[2024-12-28] MEDS ORDERED: propofoL 500 MG/50 ML 50 ML ONE (09:13)
[2024-12-28] MEDS ORDERED: fentaNYL 100 MCG/2 ML SDV ONE ×2 (09:13→10:28)
[2024-12-28] MEDS ORDERED: Lidocaine 1% 5 ML VIAL ONE (09:16)
[2024-12-28] MEDS ORDERED: Midazolam 1 MG/ML 2 ML SDV ONE (09:17)
[2024-12-28] MEDS ORDERED: ceFAZolin 2 GM Vial ONE (10:04)
[2024-12-28] MEDS ORDERED: Dexamethasone 4 MG/ML 5 ML MDV ONE (10:05)
[2024-12-28] MEDS ORDERED: Ondansetron 4 MG/2 ML SDV ONE (10:05)
[2024-12-28] MEDS ORDERED: HYDROmorphone 0.5 MG/0.5 ML Syringe IVPUSH PRN (10:15)
[2024-12-28] MEDS ORDERED: Acetaminophen Soln 650 MG/20.3 ML UD Cup PO ONE (10:15)
[2024-12-28] MEDS ORDERED: Propofol 200 MG/20 ML SDV ONE (10:24)
[2024-12-28] MEDS ORDERED: Ketorolac 30 MG/ML SDV ONE (10:39)
[2024-12-28] MEDS: Bupivacaine 0.25% 10 ML SDV ONE (10:40)
[2024-12-28] MEDS: fentaNYL 100 MCG/2 ML SDV IVPUSH PRN (11:00)
[2024-12-28] MEDS: Acetaminophen/HYDROcodone 325-5 MG Tab PO PRN (11:40)
[2024-12-28] MEDS: Acetaminophen/HYDROcodone 325-5 MG Tab PO ONE (13:21)
== END 2024-12-28 15:30 | disposition home or self-care (01) ==
LOC: JD.SDS 08:40
PROVIDERS: ATTEND Orthopaedic Surgery
DX: S83.242A Other tear of medial meniscus, current injury, left knee, initial encounter (principal); M94.262 Chondromalacia, left knee; C91.10 Chronic lymphocytic leukemia of B-cell type not having achieved remission; I48.0 Paroxysmal atrial fibrillation; I50.32 Chronic diastolic (congestive) heart failure; Z79.899 Other long term (current) drug therapy
CPT/HCPCS: 29881; A9270; J0171; J0665; J0690; J1100; J1885; J2003; J2250; J2405; J2704; J3010; J7120